=== PATIENT | female | born 2000 | race Caucasian/White ===

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

== ENCOUNTER 2019-05-27 16:27 | Emergency (ER) | payer SELFPAY ==
[2019-05-27] MEDS ORDERED: Ibuprofen 600 MG Tab PO ONE (16:52)
--- NOTE | 2019-05-27 16:54 | EDM.PDOC ---
ED HPI GENERAL MEDICAL PROBLEM - General Chief Complaint: Upper Extremity Injury/Pain Stated Complaint: FELL AT WORK/HURT RT ELBOW Time Seen by Provider: 05/27/19 16:53 Source of Information: Reports: Patient History Limitations: Reports: No Limitations - History of Present Illness INITIAL COMMENTS - FREE TEXT/NARRATIVE: pt arrived after a fall on the ice this am. She landed on her elebow and now is having alot of pain with movement of the arm. Onset: Today, Sudden Duration: Hour(s): Location: Reports: Upper Extremity, Right Associated Symptoms: Reports: No Other Symptoms Right Elbow Pain Score (Numeric/FACES): 6 - Related Data Allergies Allergy/AdvReac Type Severity Reaction Status Date / Time *sun Allergy Hives Uncoded 12/25/17 10:06 Home Meds: Home Meds Adapalene/Benzoyl Peroxide [Epiduo 0.1-2.5% Gel] 1 applic TOP DAILY PRN [History] Albuterol Sulfate [Proair Hfa] 2 inh INH ASDIRECTED PRN 11/15/13 [History] Omeprazole 20 mg PO DAILY 12/24/17 [History] Dextroamphetamine/Amphetamine [Adderall 20 mg Tablet] 20 mg PO DAILY 05/27/19 [ History] buPROPion [buPROPion XL] 150 mg PO BEDTIME 05/27/19 [History] Past Medical History - Past Health History Medical/Surgical History: Denies Medical/Surgical History HEENT History: Reports: Impaired Vision Cardiovascular History: Reports: None Respiratory History: Reports: Asthma Gastrointestinal History: Reports: None Other Gastrointestinal History: stomaches unknown origin Genitourinary History: Reports: None 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 Musculoskeletal History: Reports: None Neurological History: Reports: Concussion Psychiatric History: Reports: ADHD, Anxiety, Depression, Panic Attack Other Psychiatric History: cutting Endocrine/Metabolic History: Reports: None Hematologic History: Reports: None Immunologic History: Reports: None Oncologic (Cancer) History: Reports: None Dermatologic History: Reports: None Other Dermatologic History: acne - Past Surgical History Head Surgeries/Procedures: Reports: None Musculoskeletal Surgical History: Reports: Other (See Below) Other Musculoskeletal Surgeries/Procedures:: right foot Social & Family History - Tobacco Use Smoking Status *Q: Never Smoker - Caffeine Use Caffeine Use: Reports: Coffee, Soda, Tea - Recreational Drug Use Recreational Drug Use: No - Living Situation & Occupation Living situation: Reports: with Significant Other (lives in [place], [place]. with boyfriend) Review of Systems - Review of Systems Review Of Systems: See Below Constitutional: Reports: No Symptoms Eyes: Reports: No Symptoms Ears: Reports: No Symptoms Nose: Reports: No Symptoms Mouth/Throat: Reports: No Symptoms Respiratory: Reports: No Symptoms Cardiovascular: Reports: No Symptoms Musculoskeletal: Reports: Other (pain in rt elebow--tender to palpate. Xray of the elebow is neg for fracture. ) Skin: Reports: No Symptoms Neurological: Reports: No Symptoms ED EXAM, GENERAL - Physical Exam Exam: See Below Free Text/Narrative:: pt has a tender rt elebow. She is uncomfortable with full extension. Extremities: Other ( elebow is not swollen. She is very uncomfortable with full extension) Neurological: Alert, Oriented, Normal Cognition Course - Vital Signs Last Recorded V/S: Last Vital Signs Temp 35.5 C L 05/27/19 16:44 Pulse 100 05/27/19 16:44 Resp 16 05/27/19 16:44 BP 157/78 H 05/27/19 16:44 Pulse Ox 98 05/27/19 16:44 - Orders/Labs/Meds Meds: Medications Discontinued Medications Generic Name Dose Route Start Last Admin Trade Name Cam PRN Reason Stop Dose Admin Ibuprofen 600 mg 05/27/19 16:52 05/27/19 17:06 Motrin PO 05/27/19 16:53 600 mg ONETIME ONE Administration - Re-Assessments/Exams Free Text/Narrative Re-Assessment/Exam: 05/27/19 18:08 xray reveals no fracture. pt will be placed in a sling. 05/30/19 19:00 Departure - Departure Time of Disposition: 18:04 Disposition: Home, Self-Care 01 Condition: Fair Clinical Impression: Contusion of right elbow - Discharge Information Instructions: Elbow Contusion, [id number] Referrals: PCP,None [Primary Care Provider] - Forms: ED Department Discharge Care Plan Goals: cool pack, sling off and on, fully extend the elebow several times daily motrin 600mg q6h as needed for pain. Sepsis Event Note - Evaluation Sepsis Screening Result: No Definite Risk - Focused Exam Date Exam was Performed: 05/30/19 Time Exam was Performed: 18:59
[2019-05-27 17:10] VITALS: BP 157/78; PULSE 100
--- NOTE | 2019-05-27 17:52 | CRLCR ---
INDICATION: Fall, right elbow pain. TECHNIQUE: X-ray right elbow, 3 views. COMPARISON: None available. FINDINGS: The alignment is normal. No elbow joint effusion is seen. Negative for acute fracture or dislocation. Overlying soft tissues within normal limits. IMPRESSION: Negative for acute fracture or dislocation. Dictated by Linda Caraballo MD @ 05/27/2019 5:49:36 PM Dictated by: Linda Caraballo MD @ 05/27/2019 17:50:14 (Electronically Signed)
== END 2019-05-27 18:20 | disposition home or self-care (01) ==
LOC: JP.ED 16:27
DX: S50.01XA Contusion of right elbow, initial encounter (principal); W18.30XA Fall on same level, unspecified, initial encounter; J45.909 Unspecified asthma, uncomplicated
CPT/HCPCS: 73080; 99283; A9270; 99282

== ENCOUNTER 2019-09-17 00:18 | Emergency (ER) | payer MEDICAID, OTHER ==
[2019-09-17 00:42] VITALS: BP 145/80; PULSE 99
[2019-09-17] MEDS ORDERED: Lactated Ringers 1,000 ML IV ONE (01:00)
[2019-09-17] MEDS ORDERED: Sodium Chloride 0.9% 10 ML Syringe FLUSH PRN (01:00)
[2019-09-17] MEDS ORDERED: Ondansetron 4 MG/2 ML SDV IVPUSH ONE (01:00)
--- NOTE | 2019-09-17 01:03 | EDM.PDOC ---
ED HPI GENERAL MEDICAL PROBLEM - General Chief Complaint: Gastrointestinal Problem Stated Complaint: VOMITING BLOOD Time Seen by Provider: 09/17/19 00:56 Source of Information: Reports: Patient, Family, RN Notes Reviewed History Limitations: Reports: No Limitations - History of Present Illness INITIAL COMMENTS - FREE TEXT/NARRATIVE: 19-year-old female presents emergency department a complaint of nausea and vomiting, she is currently 11 weeks intrauterine she is 1 para 0 states to have difficulties all day has had some blood-tinged sputum in her emesis, does have a photograph which reveals blood tinged sputum in the emesis - Related Data Allergies Allergy/AdvReac Type Severity Reaction Status Date / Time *sun Allergy Hives Uncoded 09/17/19 00:36 Home Meds: Home Meds Prenat 115/Iron Fum/Folic/Dss [ 19 Tablet] 1 each PO DAILY 09/17/19 [History] Past Medical History HEENT History: Reports: Impaired Vision Respiratory History: Reports: Asthma Other Gastrointestinal History: ulcers 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: Neurological History: Reports: Concussion Psychiatric History: Reports: ADHD, Anxiety, Depression, Panic Attack Other Psychiatric History: cutting Other Dermatologic History: acne - Past Surgical History Head Surgeries/Procedures: Reports: None GI Surgical History: Reports: EGD Musculoskeletal Surgical History: Reports: Other (See Below) Other Musculoskeletal Surgeries/Procedures:: right foot-taylors bunion Social & Family History - Tobacco Use Smoking Status *Q: Never Smoker - Caffeine Use Caffeine Use: Reports: None - Recreational Drug Use Recreational Drug Use: No - Living Situation & Occupation Living situation: Reports: with Significant Other (lives in [facility] with boyfriend) ED ROS GENERAL - Review of Systems Review Of Systems: See Below Constitutional: Reports: No Symptoms HEENT: Reports: No Symptoms Respiratory: Reports: No Symptoms Cardiovascular: Reports: No Symptoms GI/Abdominal: Reports: Nausea, Vomiting. Denies: Abdominal Pain : Reports: No Symptoms ED EXAM - Physical Exam Exam: See Below Exam Limited By: No Limitations General Appearance: Alert, WD/WN, No Apparent Distress Respiratory/Chest: No Respiratory Distress, Lungs Clear, Normal Breath Sounds, No Accessory Muscle Use, Chest Non-Tender Cardiovascular: Regular Rate, Rhythm, No Murmur GI/Abdominal Exam: Soft, Non-Tender Course - Vital Signs Last Recorded V/S: Last Vital Signs Temp 98.1 F 09/17/19 00:37 Pulse 99 09/17/19 00:37 Resp 16 09/17/19 00:37 BP 145/80 H 09/17/19 00:37 Pulse Ox 100 09/17/19 00:37 - Orders/Labs/Meds Orders: Active Orders 24 hr Category Date Time Status Peripheral IV Care [RC] . DIRECTED Care 09/17/19 01:00 Active Sodium Chloride 0.9% [Saline Flush] Med 09/17/19 01:00 Active 10 ml FLUSH ASDIRECTED PRN Peripheral IV Insertion Adult [OM.PC] Urgent Oth 09/17/19 01:00 Ordered Medication Orders Sodium Chloride (Saline Flush) 10 ml FLUSH ASDIRECTED PRN PRN Reason: Keep Vein Open Last Admin: 09/17/19 01:31 Dose: 10 ml Documented by: LORENA Labs: Laboratory Tests 09/17/19 Range/Units 00:56 Urine Color Yellow (YELLOW) Urine Appearance Cloudy A (CLEAR) Urine pH 6.0 (5.0-8.0) Ur Specific [place] >= 1.030 (1.008-1.030) Urine Protein 30 H (NEGATIVE) mg/dL Urine Glucose (UA) Negative (NEGATIVE) mg/dL Urine Ketones 40 H (NEGATIVE) mg/dL Urine Occult Blood Negative (NEGATIVE) Urine Nitrite Negative (NEGATIVE) Urine Bilirubin Negative (NEGATIVE) Urine Urobilinogen 1.0 (0.2-1.0) EU/dL Ur Leukocyte Esterase Negative (NEGATIVE) Urine RBC 0-5 (0-5) Urine WBC 0-5 (0-5) Ur Epithelial Cells Many Amorphous Sediment Not seen Urine Bacteria Many Urine Mucus Many Meds: Medications Generic Name Dose Route Start Last Admin Trade Name Freq PRN Reason Stop Dose Admin Sodium Chloride 10 ml 09/17/19 01:00 09/17/19 01:31 Saline Flush FLUSH 10 ml ASDIRECTED PRN Administration Keep Vein Open Discontinued Medications Generic Name Dose Route Start Last Admin Trade Name Freq PRN Reason Stop Dose Admin Lactated Ringer's 1,000 mls @ 999 mls/hr 09/17/19 01:00 09/17/19 01:31 Ringers, Lactated IV 09/17/19 02:00 999 mls/hr BOLUS ONE Administration Ondansetron HCl 4 mg 09/17/19 01:00 09/17/19 01:31 Zofran IVPUSH 09/17/19 01:01 4 mg ONETIME ONE Administration Departure - Departure Time of Disposition: 02:14 Disposition: Home, Self-Care 01 Condition: Fair Clinical Impression: Nausea and vomiting during prior to 22 weeks gestation - Discharge Information Instructions: Nausea and Vomiting, Adult, [id number] Referrals: PCP,None [Primary Care Provider] - Forms: ED Department Discharge Additional Instructions: Continue to use the Zofran as needed for nausea and vomiting symptoms, keep your follow-up appointment with your computer assembler next week call return to the emergency department worsening of symptoms Sepsis Event Note (ED) - Evaluation Sepsis Screening Result: No Definite Risk - Focused Exam Vital Signs: Vital Signs Temp Pulse Resp BP Pulse Ox 09/17/19 00:37 98.1 F 99 16 145/80 H 100 - My Orders Last 24 Hours: My Active Orders 09/17/19 01:00 Peripheral IV Care [RC] . DIRECTED Sodium Chloride 0.9% [Saline Flush] 10 ml FLUSH ASDIRECTED PRN Peripheral IV Insertion Adult [OM.PC] Urgent - Assessment/Plan Last 24 Hours: My Active Orders 09/17/19 01:00 Peripheral IV Care [RC] . DIRECTED Sodium Chloride 0.9% [Saline Flush] 10 ml FLUSH ASDIRECTED PRN Peripheral IV Insertion Adult [OM.PC] Urgent Plan: Assessment Acuity = acute Site and laterality = nausea and vomiting first trimester Etiology = unknown Manifestations = none Location of injury = Home Lab values = urinalysis reveals specific gravity of 1.03 consistent with intravascular volume depletion Plan Good improvement 1 L fluids 4 mg Zofran symptoms now resolved discharged home with Zofran 1 mg p.o. 3 times daily PRN total #10 she has a follow-up with her COMPUTER ASSEMBLER next week This note was dictated using [employer] voice recognition software please call with any questions on syntax or grammar.
== END 2019-09-17 02:32 | disposition home or self-care (01) ==
LOC: JP.ED 00:18
DX: O21.9 Vomiting of pregnancy, unspecified (principal); Z91.048 Other nonmedicinal substance allergy status; Z3A.11 11 weeks gestation of pregnancy
CPT/HCPCS: 81001; 96361; 96374; 99284; J2405; J7120

== ENCOUNTER 2019-09-17 03:29 | Emergency (ER) | payer MEDICAID ==
[2019-09-17 03:43] VITALS: BP 147/77; PULSE 105
--- NOTE | 2019-09-17 04:16 | EDM.PDOC ---
ED HPI GENERAL MEDICAL PROBLEM - General Chief Complaint: VEST BUSHELER Problem Stated Complaint: BLEEDING 11 WKS PREG. Time Seen by Provider: 09/17/19 04:12 Source of Information: Reports: Patient, Family, RN Notes Reviewed History Limitations: Reports: No Limitations - History of Present Illness INITIAL COMMENTS - FREE TEXT/NARRATIVE: 19-year-old female 1 para 0 currently 11 weeks and negatives had evaluated earlier in the ED for nausea and vomiting, that now has resolved unfortunately she did get home this evening large gush of bright red blood, no abdominal cramping she has not had a quickening at this time denies pain Pain Score (Numeric/FACES): 0 - Related Data Allergies Allergy/AdvReac Type Severity Reaction Status Date / Time *sun Allergy Hives Uncoded 09/17/19 03:44 Home Meds: Home Meds Prenat 115/Iron Fum/Folic/Dss [ 19 Tablet] 1 each PO DAILY 09/17/19 [History] Past Medical History HEENT History: Reports: Impaired Vision Respiratory History: Reports: Asthma Other Gastrointestinal History: ulcers Genitourinary History: Reports: None 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: Musculoskeletal History: Reports: None Neurological History: Reports: Concussion Psychiatric History: Reports: ADHD, Anxiety, Depression, Panic Attack, Other (See Below) Other Psychiatric History: cutting Endocrine/Metabolic History: Reports: None Hematologic History: Reports: None Immunologic History: Reports: None Oncologic (Cancer) History: Reports: None Dermatologic History: Reports: Other (See Below) Other Dermatologic History: acne - Past Surgical History Musculoskeletal Surgical History: Reports: Other (See Below) Other Musculoskeletal Surgeries/Procedures:: right foot-taylors bunion Social & Family History - Tobacco Use Smoking Status *Q: Never Smoker - Caffeine Use Caffeine Use: Reports: Coffee, Soda - Recreational Drug Use Recreational Drug Use: No - Living Situation & Occupation Living situation: Reports: with Significant Other (lives in [place], [place]. with boyfriend) ED ROS GENERAL - Review of Systems Review Of Systems: See Below Constitutional: Reports: No Symptoms Respiratory: Reports: No Symptoms Cardiovascular: Reports: No Symptoms : Reports: Irregular Menses ED EXAM - Physical Exam Exam: See Below Exam Limited By: No Limitations General Appearance: Alert, WD/WN, No Apparent Distress GI/Abdominal Exam: Soft, Non-Tender Heart Tones: Not [place] Movement: Not Appreciated Course - Vital Signs Last Recorded V/S: Last Vital Signs Temp 98.7 F 09/17/19 03:42 Pulse 105 H 09/17/19 03:42 Resp 17 09/17/19 03:42 BP 147/77 H 09/17/19 03:42 Pulse Ox 97 09/17/19 03:42 - Orders/Labs/Meds Orders: Active Orders 24 hr Category Date Time Status OB Transvaginal [US] Stat Exams 09/17/19 03:57 Taken Departure - Departure Time of Disposition: 05:33 Disposition: Home, Self-Care 01 Condition: Fair Clinical Impression: Subchorionic hemorrhage in first trimester Qualifiers: Fetus number: single or unspecified fetus Qualified Code(s): O41.8X10 - Other specified disorders of amniotic fluid and membranes, first trimester, not applicable or unspecified; O46.8X1 - Other antepartum hemorrhage, first trimester - Discharge Information Instructions: Subchorionic Hematoma Referrals: PCP,None [Primary Care Provider] - Forms: ED Department Discharge Additional Instructions: Keep your follow-up appointment with your VEST BUSHELER call return to the emergency department with worsening of symptoms Sepsis Event Note (ED) - Evaluation Sepsis Screening Result: No Definite Risk - Focused Exam Vital Signs: Vital Signs Temp Pulse Resp BP Pulse Ox 09/17/19 03:42 98.7 F 105 H 17 147/77 H 97 09/17/19 03:41 98.7 F 105 H 17 147/77 H 97 - My Orders Last 24 Hours: My Active Orders 09/17/19 03:57 OB Transvaginal [US] Stat - Assessment/Plan Last 24 Hours: My Active Orders 09/17/19 03:57 OB Transvaginal [US] Stat Plan: Assessment Acuity = acute Site and laterality = subchorionic hemorrhage with single live intrauterine p regnancy Etiology = unknown Manifestations = none Location of injury = Home Lab values = ultrasound describes the hemorrhage above Plan Keep follow-up appointment with VEST BUSHELER on the This note was dictated using [employer] voice recognition software please call with any questions on syntax or grammar.
--- NOTE | 2019-09-19 10:37 | US ---
OB Transvaginal CLINICAL HISTORY: First trimester bleed FINDINGS: Real-time transvaginal images obtained through the pelvis show a single viable intrauterine . Uterus measures 9.8 x 8.5 x 6.9 cm. There is a gestational sac with a pole measuring 4.4 cm. This correlates to the 11 week 2 day gestation. EDC is 06/28/2020 Adjacent to the gestational sac is a subchorionic hemorrhage measuring 3.1 x 0.8 x 2.5 cm. There is no internal flow. heart rate is 165 bpm. Yolk sac measures 4 mm. IMPRESSION: Viable 11 week 2 day gestation Subchorionic bleed described above
== END 2019-09-17 05:42 | disposition home or self-care (01) ==
LOC: JP.ED 03:29
DX: O20.8 Other hemorrhage in early pregnancy (principal); Z91.048 Other nonmedicinal substance allergy status; Z3A.11 11 weeks gestation of pregnancy
CPT/HCPCS: 76817; 76817-26; 99284-25

== ENCOUNTER 2020-03-20 04:13 | Inpatient (IN) | payer MEDICAID ==
[2020-03-20] MEDS ORDERED: Sodium Chloride 0.9% 10 ML Syringe FLUSH PRN (07:20)
[2020-03-20] MEDS ORDERED: fentaNYL 100 MCG/2 ML SDV IVPUSH PRN (07:20)
[2020-03-20] MEDS ORDERED: Misoprostol 50 MCG (1/2 of 100 MCG) Tab PO ONE (07:30)
--- NOTE | 2020-03-20 07:31 | PCM.LDHP ---
L&D History of Present Illness - General Date of Service: 03/20/20 (PROM) Admit Problem/Dx: Patient Status Order with Admit Dx/Problem 03/20/20 07:20 Patient Status [ADT] Routine Admission Diagnosis/Problem Admission Diagnosis/Problem Source of Information: Patient History Limitations: Reports: No Limitations - History of Present Illness Introduction:: 03/20/20 This 20 year old who is 38 3/7 presented with SROM at home without labor. She was having mild contractions at 0130 and awoke to a pool of fluid in her bed at 0345. FMR was positive. CE /-2 at 0445 by staff. uncomplicated Labs: ABO A pos, HIV neg, GBS neg, Covid pending Timing/Duration: Reports: minutes: (3-4) Location, : Reports: Abdomen Quality: Reports: Pressure Severity: Mild Improves with: Reports: None Worsens with: Reports: None Associated Symptoms: Reports: vaginal fluid - Related Data Allergies/Adverse Reactions: Allergies Allergy/AdvReac Type Severity Reaction Status Date / Time *sun Allergy Hives Uncoded 09/17/19 03:44 Past Medical History - Past Health History Medical/Surgical History: Denies Medical/Surgical History HEENT History: Reports: Impaired Vision Cardiovascular History: Reports: None Respiratory History: Reports: Asthma Other Gastrointestinal History: ulcers Genitourinary History: Reports: None 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: : 1 Para: 0 LMP (Approximate): (RODNEY 03/31/20) Musculoskeletal History: Reports: None Neurological History: Reports: Concussion Psychiatric History: Reports: ADHD, Anxiety, Depression, Panic Attack, Other (See Below) Other Psychiatric History: cutting Endocrine/Metabolic History: Reports: None Hematologic History: Reports: None Immunologic History: Reports: None Oncologic (Cancer) History: Reports: None Dermatologic History: Reports: Other (See Below) Other Dermatologic History: acne - Infectious Disease History Infectious Disease History: Reports: None - Past Surgical History Head Surgeries/Procedures: Reports: None HEENT Surgical History: Reports: None Cardiovascular Surgical History: Reports: None Respiratory Surgical History: Reports: None GI Surgical History: Reports: EGD Female Surgical History: Reports: None Endocrine Surgical History: Reports: None Neurological Surgical History: Reports: None Musculoskeletal Surgical History: Reports: Other (See Below) Other Musculoskeletal Surgeries/Procedures:: right foot-taylors bunion Oncologic Surgical History: Reports: None Dermatological Surgical History: Reports: None Social & Family History - Tobacco Use Tobacco Use Status *Q: Never Tobacco User Second Hand Smoke Exposure: No - Caffeine Use Caffeine Use: Reports: Coffee, Soda - Recreational Drug Use Recreational Drug Use: No - Living Situation & Occupation Living situation: Reports: with Significant Other (lives in [facility] with boyfriend) H&P Review of Systems - Review of Systems: Review Of Systems: See Below General: Reports: No Symptoms HEENT: Reports: No Symptoms Pulmonary: Reports: No Symptoms Cardiovascular: Reports: No Symptoms Gastrointestinal: Reports: No Symptoms Genitourinary: Reports: No Symptoms Musculoskeletal: Reports: No Symptoms Skin: Reports: No Symptoms Psychiatric: Reports: No Symptoms Neurological: Reports: No Symptoms Hematologic/Lymphatic: Reports: No Symptoms Immunologic: Reports: No Symptoms L&D Exam - Exam Exam: See Below - Vital Signs Vital Signs: Last Vital Signs Temp 98.2 F 03/20/20 07:00 Pulse 98 03/20/20 07:00 Resp 18 03/20/20 07:00 BP 139/82 03/20/20 07:00 Pulse Ox 94 L 03/20/20 07:00 Weight: 250 lb - OB Specific Contraction Duration (sec): 50-70 Contraction Frequency (min): 3-5 Contraction Intensity: Mild Movement: Active Heart Tones: Present Heart Tones per Min: 130 Heart Rate (FHR) Variability: Moderate (6-25 bmp) Presentation: Vertex - Tran Score Tran Score Cervix Position: Midposition Tran Score Consistency: Soft Tran Score Effacement: 51-70% Tran Score Dilation: 1-2 cm Tran Score 's Station: -2 Tran Score Total: 7 - Exam General: Alert, Oriented HEENT: PERRLA, Conjunctiva Clear Neck: Trachea Midline Lungs: Normal Respiratory Effort Cardiovascular: Regular Rate, Regular Rhythm GI/Abdominal Exam: Soft Genitourinary: Cervical dilitation, Cervical fluid, Enlarged uterus Back Exam: Normal Inspection Extremities: No Pedal Edema, Normal Capillary Refill Skin: Warm Neurological: Cranial Nerves Intact Psychiatric: Alert, Normal Affect, Normal Mood - Patient Data Lab Results Last 24 hrs: Laboratory Results - last 24 hr 03/20/20 03/20/20 03/20/20 Range/Units 04:15 04:37 05:44 WBC (4.5-11.0) K/uL RBC (3.30-5.50) M/uL Hgb (12.0-15.0) g/dL Hct (36.0-48.0) % MCV (80-98) fL MCH (27-31) pg MCHC (32-36) % Plt Count (150-400) K/uL Neut % (Auto) (36-66) % Lymph % (Auto) (24-44) % [facility] % (Auto) (2-6) % Eos % (Auto) (2-4) % Baso % (Auto) (0-1) % Urine Color Yellow (YELLOW) Urine Appearance Slightly cloudy A (CLEAR) Urine pH 7.0 (5.0-8.0) Ur Specific [place] 1.025 (1.008-1.030) Urine Protein Trace H (NEGATIVE) mg/dL Urine Glucose (UA) 100 H (NEGATIVE) mg/dL Urine Ketones Negative (NEGATIVE) mg/dL Urine Occult Blood Moderate H (NEGATIVE) Urine Nitrite Negative (NEGATIVE) Urine Bilirubin Negative (NEGATIVE) Urine Urobilinogen 0.2 (0.2-1.0) EU/dL Ur Leukocyte Esterase Negative (NEGATIVE) Urine RBC 30-40 H (0-5) Urine WBC 0-5 (0-5) Ur Epithelial Cells Few Amorphous Sediment Not seen Urine Bacteria Moderate Urine Mucus Not seen Membrane Rupture Positive H (NEGATIVE) Urine Opiates Screen Negative (NEGATIVE) Ur Oxycodone Screen Negative (NEGATIVE) Urine Methadone Screen Negative (NEGATIVE) Ur Propoxyphene Screen Negative (NEGATIVE) Ur Barbiturates Screen Negative (NEGATIVE) Ur Tricyclics Screen Negative (NEGATIVE) Ur Phencyclidine Scrn Negative (NEGATIVE) Ur Amphetamine Screen Negative (NEGATIVE) U Methamphetamines Scrn Negative (NEGATIVE) Urine MDMA Screen Negative (NEGATIVE) U Benzodiazepines Scrn Negative (NEGATIVE) U Cocaine Metab Screen Negative (NEGATIVE) U Marijuana (THC) Screen Negative (NEGATIVE) 03/20/20 Range/Units 06:03 WBC 13.6 H (4.5-11.0) K/uL RBC 4.52 (3.30-5.50) M/uL Hgb 10.7 L D (12.0-15.0) g/dL Hct 34.5 L (36.0-48.0) % MCV 76 L (80-98) fL MCH 24 L (27-31) pg MCHC 31 L (32-36) % Plt Count 307 (150-400) K/uL Neut % (Auto) 71 H (36-66) % Lymph % (Auto) 17 L (24-44) % [facility] % (Auto) 12 H (2-6) % Eos % (Auto) 0 L (2-4) % Baso % (Auto) 0 (0-1) % Urine Color (YELLOW) Urine Appearance (CLEAR) Urine pH (5.0-8.0) Ur Specific [place] (1.008-1.030) Urine Protein (NEGATIVE) mg/dL Urine Glucose (UA) (NEGATIVE) mg/dL Urine Ketones (NEGATIVE) mg/dL Urine Occult Blood (NEGATIVE) Urine Nitrite (NEGATIVE) Urine Bilirubin (NEGATIVE) Urine Urobilinogen (0.2-1.0) EU/dL Ur Leukocyte Esterase (NEGATIVE) Urine RBC (0-5) Urine WBC (0-5) Ur Epithelial Cells Amorphous Sediment Urine Bacteria Urine Mucus Membrane Rupture (NEGATIVE) Urine Opiates Screen (NEGATIVE) Ur Oxycodone Screen (NEGATIVE) Urine Methadone Screen (NEGATIVE) Ur Propoxyphene Screen (NEGATIVE) Ur Barbiturates Screen (NEGATIVE) Ur Tricyclics Screen (NEGATIVE) Ur Phencyclidine Scrn (NEGATIVE) Ur Amphetamine Screen (NEGATIVE) U Methamphetamines Scrn (NEGATIVE) Urine MDMA Screen (NEGATIVE) U Benzodiazepines Scrn (NEGATIVE) U Cocaine Metab Screen (NEGATIVE) U Marijuana (THC) Screen (NEGATIVE) Result Diagrams: 03/20/20 06:03 - Problem List (1) Intrauterine SNOMED Code(s): 99833106 ICD Code: Z34.90 - ENCNTR FOR SUPRVSN OF NORMAL , UNSP, UNSP TRIMESTER Status: Acute Current Visit: Yes (2) PROM (premature rupture of membranes) SNOMED Code(s): 37643210 ICD Code: O42.90 - NAKUL ROM, 7TH0 BETW RUPT & ONST LABR, UNSP WEEKS OF GEST Status: Acute Current Visit: Yes Qualifiers: PROM onset of labor timing: unspecified duration between rupture of membranes and onset of labor PROM gestational age: full term Qualified Code(s): O42.9 2 - Full-term premature rupture of membranes, unspecified as to length of time between rupture and onset of labor Problem List Initiated/Reviewed/Updated: Yes Orders Last 24hrs: Active Orders 24 hr Category Date Time Status Patient Status [ADT] Routine ADT 03/20/20 07:20 Ordered Antiembolic Devices [RC] .Routine Care 03/20/20 07:23 Ordered Communication Order [RC] ASDIRECTED Care 03/20/20 07:20 Ordered Heart Tones [RC] PER UNIT ROUTINE Care 03/20/20 07:20 Ordered Non Stress Test [RC] Click to Edit Care 03/20/20 07:20 Ordered May Shower [RC] ASDIRECTED Care 03/20/20 07:20 Ordered Notify Provider Vital Signs [RC] PRN Care 03/20/20 07:20 Ordered Notify Provider [RC] PRN Care 03/20/20 07:20 Ordered OB Check [OM.PC] Click to Edit Care 03/20/20 04:14 Ordered Up ad Martha [RC] ASDIRECTED Care 03/20/20 07:20 Ordered VTE/DVT Education [RC] Click to Edit Care 03/20/20 07:23 Ordered Vital Signs [RC] PER UNIT ROUTINE Care 03/20/20 07:20 Ordered Regular Diet [DIET] Diet 03/20/20 Dinner Ordered CORONAVIRUS COVID-19 RAPID [MOLEC] Routine Lab 03/20/20 06:04 Received Sodium Chloride 0.9% [Saline Flush] Med 03/20/20 07:20 Ordered 10 ml FLUSH ASDIRECTED PRN fentaNYL [Sublimaze] Med 03/20/20 07:20 Ordered 100 mcg IVPUSH Q1H PRN miSOPROStoL [Cytotec] Med 03/20/20 07:14 Once 100 mcg PO ONETIME ONE DVT/VTE Prophylaxis Reflex [OM.PC] Routine Oth 03/20/20 07:20 Ordered Saline Lock Insert [OM.PC] Routine Oth 03/20/20 07:20 Ordered Resuscitation Status Routine Resus Stat 03/20/20 07:20 Ordered Medication Orders Fentanyl (Sublimaze) 100 mcg IVPUSH Q1H PRN PRN Reason: Pain (moderate 4-6) Misoprostol (Cytotec) 100 mcg PO ONETIME ONE Stop: 03/20/20 07:31 Sodium Chloride (Saline Flush) 10 ml FLUSH ASDIRECTED PRN PRN Reason: Keep Vein Open Assessment/Plan Comment:: 03/20/20 PROM at 38 3/7 weeks, mild contractions, clear fluid Plan: Oral Misoprostol this morning and pitocin at noon if no strong labor plan for vaginal delivery maybe up and about
[2020-03-20] MEDS ORDERED: Lactated Ringers 1,000 ML IV ONE (11:47)
[2020-03-20] MEDS ORDERED: ePHEDrine 50 MG/ML SDV IVPUSH PRN (11:47)
--- NOTE | 2020-03-20 11:51 | PCM.PNLD ---
Labor Progress Note - VS & Meds Vital Signs: Last Vital Signs Temp 98.2 F 03/20/20 07:00 Pulse 102 H 03/20/20 08:55 Resp 18 03/20/20 08:55 BP 137/84 03/20/20 08:55 Pulse Ox 98 03/20/20 08:55 Active Medications: Current Medications Fentanyl (Sublimaze) 100 mcg IVPUSH Q1H PRN PRN Reason: Pain (moderate 4-6) Sodium Chloride (Saline Flush) 10 ml FLUSH ASDIRECTED PRN PRN Reason: Keep Vein Open Discontinued Medications Oxytocin/Sodium Chloride (Pitocin In Ns 20 Units/1,000 Ml) Confirm Administered Dose 20 unit in 1,000 mls @ as directed .ROUTE .STK-MED ONE Stop: 03/20/20 11:05 Misoprostol (Cytotec) 100 mcg PO ONETIME ONE Stop: 03/20/20 07:31 Last Admin: 03/20/20 07:50 Dose: 100 mcg Documented by: - Uterine Contractions Uterine Monitoring Mode: External [place] Contraction Frequency (min): 1.5-3 Contraction Duration (sec): 30-60 Contraction Intensity: Moderate Uterine Resting Tone: Soft - Monitoring Monitor Mode: Doppler/Auscultation Heart Rate (FHR) Baseline: 135 Heart Rate (FHR) Variability: Moderate (6-25 bmp) Accelerations: Present, 15x15 Decelerations: None Strip Review: Category I - Vaginal Exam Dilation (cm): 3 Effacement (Percent): 90 Station: 0 Cervical Position: Midposition Sterile Vaginal Exam Performed By: Hilaria Puentes Vaginal Exam Comment: has had effacement since this morning - Labor Progress (Free Text) Labor Progress: Lots of back pain cervical change /0 currently using nitrous with some relief. Plan Epidural Labor down and peanut ball. Plan for vaginal delivery
[2020-03-20] MEDS: Lactated Ringers 1,000 ML IV SCH ×2 (12:50→16:50)
[2020-03-20] MEDS ORDERED: Ropivacaine 100 ML ONE (13:41)
[2020-03-20] MEDS ORDERED: Ketorolac 60 MG/2 ML SDV ONE (13:55)
--- NOTE | 2020-03-20 14:47 | ANES ---
DATE OF SERVICE: 03/20/2020 INDICATION: I was called this early afternoon for a young lady up in the OB Department requesting a labor epidural. I was at the bedside at approximately 12:30. Brief history and physical was done with the patient. The patient has had a normal , is a healthy patient, is not currently on any blood thinners. Platelet count was noted to be 307. Bolus was just finishing up when I was in the room. Risks and benefits including spinal headache and risk for infection were reviewed with the patient. The patient verbalizes her understanding and wishes to proceed with the labor epidural at this time. DESCRIPTION OF PROCEDURE: The patient was sat at the edge of the bed. Betadine prep x3 to the lumbar region was done. Sterile drape was placed. 1% lidocaine skin wheal and deep was done. A 17-gauge Tuohy needle was inserted at approximately the L3-4 position. Very poor feel throughout, very difficult to get a good flavum feel. I did get some loss of resistance or what feel to be loss of resistance. I tried to pass a catheter and I was able to get the catheter in to 15 cm. Pulled the Touhy out. Did give the test dose bolus but was unable to do that, so catheter was then pulled and a second kit was then retrieved. The patient continued to sat at the edge of the bed. I did re-prep the Betadine x3 again. Sterile drape was placed on. 1% lidocaine skin wheal and deep was done at the L4-5 level this time. The Tuohy needle was inserted at that level. Did have better feel overall this time once again to flavum, I had a real nice feel at that time and a very nice loss of resistance was noted at approximately 8 cm, Touhy was all the way to the hub. Catheter was easily placed through the Touhy needle at this time. The Tuohy needle was then withdrawn. Catheter was pulled back and secured at approximately 17 cm. A 5 mL test dose was then done. Catheter was then fully secured. The patient was laid in supine position with head of bed slightly elevated and left uterine displacement. The patient was showing no signs of intravascular injection of local or subarachnoid block. I then proceeded to give the patient 12 mL of 0.2% ropivacaine bolus via the epidural and started her on a 0.2% ropivacaine drip at 12 mL an hour via the epidural. The patient tolerated everything overall quite well, was starting to have some numbness and tingling noted in her feet and legs prior to leaving. Blood pressure was stable after the bolus. Please refer to the nurse's notes for those. I will be available as needed for the patient. Ruiz Thorpe CRNA /[id number]
--- NOTE | 2020-03-20 17:20 | PCM.PNLD ---
Labor Progress Note - VS & Meds Vital Signs: Last Vital Signs Temp 98.2 F 03/20/20 10:40 Pulse 117 H 03/20/20 15:30 Resp 16 03/20/20 15:30 BP 125/64 03/20/20 15:30 Pulse Ox 97 03/20/20 15:30 Active Medications: Current Medications Ephedrine Sulfate (Ephedrine Sulfate) 10 mg IVPUSH ASDIRECTED PRN PRN Reason: Hypotension Last Admin: 03/20/20 14:20 Dose: 10 mg Documented by: Fentanyl (Sublimaze) 100 mcg IVPUSH Q1H PRN PRN Reason: Pain (moderate 4-6) Lactated Ringer's (Ringers, Lactated) 1,000 mls @ 125 mls/hr IV ASDIRECTED TAMARA Last Admin: 03/20/20 16:50 Dose: 125 mls/hr Documented by: Oxytocin/Sodium Chloride (Pitocin In Ns 20 Units/1,000 Ml) 20 unit in 1,000 mls @ 3 mls/hr IV TITRATE TAMARA; Protocol Last Titration: 03/20/20 16:10 Dose: 2 munits/min, 6 mls/hr Documented by: Sodium Chloride (Saline Flush) 10 ml FLUSH ASDIRECTED PRN PRN Reason: Keep Vein Open Discontinued Medications Oxytocin/Sodium Chloride (Pitocin In Ns 20 Units/1,000 Ml) Confirm Administered Dose 20 unit in 1,000 mls @ as directed .ROUTE .STK-MED ONE Stop: 03/20/20 11:05 Last Admin: 03/20/20 12:03 Dose: Not Given Documented by: Lactated Ringer's (Ringers, Lactated) 1,000 mls @ 999 mls/hr IV .BOLUS ONE Stop: 03/20/20 12:47 Last Admin: 03/20/20 11:45 Dose: 999 mls/hr Documented by: Ropivacaine (Naropin 0.2%) Confirm Administered Dose 100 mls @ as directed .ROUTE .STK-MED ONE Stop: 03/20/20 13:42 Ketorolac Tromethamine (Toradol) Confirm Administered Dose 60 mg .ROUTE .STK-MED ONE Stop: 03/20/20 13:56 Misoprostol (Cytotec) 100 mcg PO ONETIME ONE Stop: 03/20/20 07:31 Last Admin: 03/20/20 07:50 Dose: 100 mcg Documented by: - Uterine Contractions Uterine Monitoring Mode: External [place] Contraction Frequency (min): 1.5-4.5 Contraction Duration (sec): 30-60 Contraction Intensity: Moderate Uterine Resting Tone: Soft - Monitoring Monitor Mode: Doppler/Auscultation Heart Rate (FHR) Baseline: 135 Heart Rate (FHR) Variability: Moderate (6-25 bmp) Accelerations: Present, 15x15 Decelerations: None Strip Review: Category I - Vaginal Exam Dilation (cm): 5-6 Effacement (Percent): 90 Station: 1 Cervical Position: Anterior Sterile Vaginal Exam Performed By: Hilaria Puentes Vaginal Exam Comment: bloody show - Labor Progress (Free Text) Labor Progress: Epidural placed at 1315. Slow progress but now active labor. Baby has a cat 2 strip with early decels. Now 5-6/90/+1 with bloody show Plan: planning for vaginal delivery Will need to labor down after getting to 10 cm and decrease the epidural rate as she is so dense.
[2020-03-20] MEDS ORDERED: Acetaminophen 500 MG Tab PO PRN (19:35)
[2020-03-20] MEDS ORDERED: Carboprost Tromethamine 250 MCG/1 ML Amp ONE (23:07)
[2020-03-20] MEDS ORDERED: Methylergonovine 0.2 MG/1 ML Amp ONE (23:07)
[2020-03-20] MEDS ORDERED: Misoprostol 200 MCG Tab ONE (23:07)
[2020-03-20] MEDS ORDERED: Misoprostol 200 MCG Tab RECTAL ONE (23:10)
[2020-03-20] MEDS ORDERED: Methylergonovine 0.2 MG/1 ML Amp IM ONE ×2 (23:10)
[2020-03-20] MEDS ORDERED: Hydrocortisone 2.5% Crm 30 GM Tube TOP PRN (23:45)
[2020-03-20] MEDS ORDERED: Benzocaine 20% Top Spray 56 GM Bottle TOP ONE (23:45)
[2020-03-20] MEDS ORDERED: Lanolin 100% Cream 40 GM Tube TOP ONE (23:45)
[2020-03-20] MEDS ORDERED: Ibuprofen 200 MG Tab, 24 Tab Bulk Bottle PO PRN (23:45)
[2020-03-20] MEDS ORDERED: Witch Hazel Medicated Pads 100/Jar TOP ONE (23:45)
[2020-03-20] MEDS ORDERED: Acetaminophen 325 MG Tab, 50 Tab Bulk Bottle PO PRN (23:45)
--- NOTE | 2020-03-21 00:07 | PCM.DEL ---
L & D Note - General Info Date of Service: 03/20/20 () Mother's Due Date: 03/31/20 - Delivery Note Labor: Spontaneous Cervical Ripening Method: Misoprostil Delivery Outcome: Livebirth Infant Delivery Method: Spontaneous Vaginal Delivery-Single Delivery Mode: Spontaneous Presentation: Right Occiput Transverse (ROT) Nuchal Cord: Present, Reduced Anesthesia Type: Epidural, Nitrous Oxide Episiotomy Type: None Laceration: 1st Degree, Perineal Suture type: Vicryl Suture size: 3-0 Placenta: Intact, Spontaneous Cord: 3 Vessels Estimated Blood Loss: 500 Resuscitation Needed: Yes Wilson: Bulb Syringe, Stimulated, Warmed, [place] Used, Warmer Used Provider: Hilaria Puentes Score 1 min: 8 (color, tone) Score 5 min: 9 (color) Post Delivery Events: Hemorrhage, Shoulder Dystocia Second Stage Interventions: Reports: Second Nurse Reviewed Heart Tones, Encouragement Given, Laboring Down, Pushing Effectively, Pushing, Knee Chest Position, Pushing, Left Side, Pushing, McRobert's Position, Pushing, Right Side, Pushing, Squat Bar Pulling on Sheet Delivery Comments (Free Text/Narrative):: This 20 year G1 now P1 who is 38 3/7 weeks gestation delivered via at 2256 a viable female infant in ROT position. with a shoulder dystocia and nuchal cord which was reduced after delivery, The newborns head was slow to deliver and due to mother's body habitus I had to reach inside rotate the baby and apply downward pressure as the RN provided suprapubic pressure to release the anterior shoulder. Wilson was stunned on arrival. The cord was double clamped and cut and she was taken to the warmer for resuscitation. She cried spontaneously with being dried and stimulated. First 8, color, tone second 9, color. The placenta was expressed spontaneously intact. She had significant bleeding with the placenta, actually there was an explosion of blood behind the placenta. He also had brisk bleeding that required Methergine and Cytotec as well as vaginal packing to stop. she lost at least 500cc. Due to body habitus it was difficult for staff to do super good uterine massage without the step stool. I repaired a small right sided perineal tear with 4, 3-0 Vicryl sutures. Inspection of vaginal wall, cervix, rectum, no other lacerations were found. EBL 500cc Mother and baby to post in stable condition weight 7-9 First stage 9662-5119 second stage 9808-0620 Third stage 8466-6683 Induction Criteria - Tran Score Tran Score Dilation: 1-2 cm Tran Score Effacement: 60-70% Tran Score 's Station: -2 Tran Score Consistency: Soft Tran Score Cervix Position: Midposition Tran Score Total: 7 Tran Score Presenting Part: Reports: Cephalic - Augmentation Estimated Pelvis: Reports: Adequate Weight Estimated:: Reports: AGA Reassuring Monitoring Strip: Yes Absence of Tachy Systole: Yes - General Info Date of Service: 03/20/20 Functional Status: Reports: Pain Controlled - Review of Systems General: Reports: No Symptoms HEENT: Reports: No Symptoms Pulmonary: Reports: No Symptoms Cardiovascular: Reports: No Symptoms Gastrointestinal: Reports: No Symptoms Genitourinary: Reports: No Symptoms Musculoskeletal: Reports: No Symptoms Skin: Reports: No Symptoms Neurological: Reports: No Symptoms Psychiatric: Reports: No Symptoms - Patient Data Vitals - Most Recent: Last Vital Signs Temp 101 F H 03/20/20 19:30 Pulse 113 H 03/20/20 17:08 Resp 16 03/20/20 17:08 BP 109/71 03/20/20 17:08 Pulse Ox 98 03/20/20 17:08 Weight - Most Recent: 250 lb I&O - Last 24 Hours: Intake & Output 03/20/20 03/20/20 03/21/20 14:59 22:59 06:59 Intake Total 2058 Output Total 1000 Balance 1058 Lab Results Last 24 Hours: Laboratory Results - last 24 hr 03/20/20 03/20/20 03/20/20 Range/Units 04:15 04:37 05:44 WBC (4.5-11.0) K/uL RBC (3.30-5.50) M/uL Hgb (12.0-15.0) g/dL Hct (36.0-48.0) % MCV (80-98) fL MCH (27-31) pg MCHC (32-36) % Plt Count (150-400) K/uL Neut % (Auto) (36-66) % Lymph % (Auto) (24-44) % [place] % (Auto) (2-6) % Eos % (Auto) (2-4) % Baso % (Auto) (0-1) % Urine Color Yellow (YELLOW) Urine Appearance Slightly cloudy A (CLEAR) Urine pH 7.0 (5.0-8.0) Ur Specific [place] 1.025 (1.008-1.030) Urine Protein Trace H (NEGATIVE) mg/dL Urine Glucose (UA) 100 H (NEGATIVE) mg/dL Urine Ketones Negative (NEGATIVE) mg/dL Urine Occult Blood Moderate H (NEGATIVE) Urine Nitrite Negative (NEGATIVE) Urine Bilirubin Negative (NEGATIVE) Urine Urobilinogen 0.2 (0.2-1.0) EU/dL Ur Leukocyte Esterase Negative (NEGATIVE) Urine RBC 30-40 H (0-5) Urine WBC 0-5 (0-5) Ur Epithelial Cells Few Amorphous Sediment Not seen Urine Bacteria Moderate Urine Mucus Not seen Membrane Rupture Positive H (NEGATIVE) Urine Opiates Screen Negative (NEGATIVE) Ur Oxycodone Screen Negative (NEGATIVE) Urine Methadone Screen Negative (NEGATIVE) Ur Propoxyphene Screen Negative (NEGATIVE) Ur Barbiturates Screen Negative (NEGATIVE) Ur Tricyclics Screen Negative (NEGATIVE) Ur Phencyclidine Scrn Negative (NEGATIVE) Ur Amphetamine Screen Negative (NEGATIVE) U Methamphetamines Scrn Negative (NEGATIVE) Urine MDMA Screen Negative (NEGATIVE) U Benzodiazepines Scrn Negative (NEGATIVE) U Cocaine Metab Screen Negative (NEGATIVE) U Marijuana (THC) Screen Negative (NEGATIVE) SARS CoV-2 RNA Rapid VERONICA 03/20/20 03/20/20 Range/Units 06:03 06:04 WBC 13.6 H (4.5-11.0) K/uL RBC 4.52 (3.30-5.50) M/uL Hgb 10.7 L D (12.0-15.0) g/dL Hct 34.5 L (36.0-48.0) % MCV 76 L (80-98) fL MCH 24 L (27-31) pg MCHC 31 L (32-36) % Plt Count 307 (150-400) K/uL Neut % (Auto) 71 H (36-66) % Lymph % (Auto) 17 L (24-44) % [place] % (Auto) 12 H (2-6) % Eos % (Auto) 0 L (2-4) % Baso % (Auto) 0 (0-1) % Urine Color (YELLOW) Urine Appearance (CLEAR) Urine pH (5.0-8.0) Ur Specific [place] (1.008-1.030) Urine Protein (NEGATIVE) mg/dL Urine Glucose (UA) (NEGATIVE) mg/dL Urine Ketones (NEGATIVE) mg/dL Urine Occult Blood (NEGATIVE) Urine Nitrite (NEGATIVE) Urine Bilirubin (NEGATIVE) Urine Urobilinogen (0.2-1.0) EU/dL Ur Leukocyte Esterase (NEGATIVE) Urine RBC (0-5) Urine WBC (0-5) Ur Epithelial Cells Amorphous Sediment Urine Bacteria Urine Mucus Membrane Rupture (NEGATIVE) Urine Opiates Screen (NEGATIVE) Ur Oxycodone Screen (NEGATIVE) Urine Methadone Screen (NEGATIVE) Ur Propoxyphene Screen (NEGATIVE) Ur Barbiturates Screen (NEGATIVE) Ur Tricyclics Screen (NEGATIVE) Ur Phencyclidine Scrn (NEGATIVE) Ur Amphetamine Screen (NEGATIVE) U Methamphetamines Scrn (NEGATIVE) Urine MDMA Screen (NEGATIVE) U Benzodiazepines Scrn (NEGATIVE) U Cocaine Metab Screen (NEGATIVE) U Marijuana (THC) Screen (NEGATIVE) SARS CoV-2 RNA Rapid VERONICA Negative Med Orders - Current: Current Medications Acetaminophen (Tylenol Extra Strength) 1,000 mg PO Q6H PRN PRN Reason: fever/pain Last Admin: 03/20/20 19:56 Dose: 1,000 mg Documented by: Ephedrine Sulfate (Ephedrine Sulfate) 10 mg IVPUSH ASDIRECTED PRN PRN Reason: Hypotension Last Admin: 03/20/20 14:20 Dose: 10 mg Documented by: Fentanyl (Sublimaze) 100 mcg IVPUSH Q1H PRN PRN Reason: Pain (moderate 4-6) Lactated Ringer's (Ringers, Lactated) 1,000 mls @ 125 mls/hr IV ASDIRECTED TAMARA Last Admin: 03/20/20 16:50 Dose: 125 mls/hr Documented by: Oxytocin/Sodium Chloride (Pitocin In Ns 20 Units/1,000 Ml) 20 unit in 1,000 mls @ 3 mls/hr IV TITRATE TAMARA; Protocol Last Titration: 03/20/20 20:36 Dose: 4 munits/min, 12 mls/hr Documented by: Sodium Chloride (Saline Flush) 10 ml FLUSH ASDIRECTED PRN PRN Reason: Keep Vein Open Discontinued Medications Carboprost Tromethamine (Hemabate Ds) Confirm Administered Dose 250 mcg .ROUTE .STK-MED ONE Stop: 03/20/20 23:08 Oxytocin/Sodium Chloride (Pitocin In Ns 20 Units/1,000 Ml) Confirm Administered Dose 20 unit in 1,000 mls @ as directed .ROUTE .STK-MED ONE Stop: 03/20/20 11:05 Last Admin: 03/20/20 12:03 Dose: Not Given Documented by: Lactated Ringer's (Ringers, Lactated) 1,000 mls @ 999 mls/hr IV .BOLUS ONE Stop: 03/20/20 12:47 Last Admin: 03/20/20 11:45 Dose: 999 mls/hr Documented by: Ropivacaine (Naropin 0.2%) Confirm Administered Dose 100 mls @ as directed .ROUTE .STK-MED ONE Stop: 03/20/20 13:42 Ketorolac Tromethamine (Toradol) Confirm Administered Dose 60 mg .ROUTE .STK-MED ONE Stop: 03/20/20 13:56 Methylergonovine Maleate (Methergine) Confirm Administered Dose 0.2 mg .ROUTE .STK-MED ONE Stop: 03/20/20 23:08 Misoprostol (Cytotec) 100 mcg PO ONETIME ONE Stop: 03/20/20 07:31 Last Admin: 03/20/20 07:50 Dose: 100 mcg Documented by: Misoprostol (Cytotec) Confirm Administered Dose 800 mcg .ROUTE .STK-MED ONE Stop: 03/20/20 23:08 - Exam General: Alert, Oriented HEENT: Pupils Equal, Pupils Reactive, EOMI, Mucous Membr. Moist/[place] Neck: Supple Lungs: Clear to Auscultation, Normal Respiratory Effort Cardiovascular: Regular Rate, Regular Rhythm GI/Abdominal Exam: Normal Bowel Sounds, Soft, Non-Tender (Female) Exam: Cervical Dilatation, Enlarged Uterus, Vaginal Bleeding Back Exam: Normal Inspection, Full Range of Motion Extremities: No Pedal Edema, Normal Capillary Refill Skin: Warm, Dry, Intact Wound/Incisions: Healing Well Neurological: No New Focal Deficit Psy/Mental Status: Alert, Normal Affect, Normal Mood - Problem List & Annotations (1) Intrauterine SNOMED Code(s): 50165360 Code(s): Z34.90 - ENCNTR FOR SUPRVSN OF NORMAL , UNSP, UNSP TRIMESTER Status: Acute Current Visit: Yes (2) PROM (premature rupture of membranes) SNOMED Code(s): 49025655 Code(s): O42.90 - NAKUL ROM, 7TH0 BETW RUPT & ONST LABR, UNSP WEEKS OF GEST Status: Acute Current Visit: Yes Qualifiers: PROM onset of labor timing: onset of labor within 24 hours of rupture PROM gestational age: full term Qualified Code(s): O42.02 - Full-term premature rupture of membranes, onset of labor within 24 hours of rupture (3) (infant) SNOMED Code(s): 040287445 Code(s): Z78.9 - OTHER SPECIFIED HEALTH STATUS Status: Acute Current Visit: Yes (4) hemorrhage SNOMED Code(s): 06323182 Code(s): O72.1 - OTHER IMMEDIATE HEMORRHAGE Status: Acute Current Visit: Yes Qualifiers: hemorrhage type: other immediate Qualified Code(s): O72.1 - Other immediate hemorrhage (5) Vaginal delivery SNOMED Code(s): 816833109 Code(s): O80 - ENCOUNTER FOR FULL-TERM UNCOMPLICATED DELIVERY Status: Acute Current Visit: Yes - Problem List Review Problem List Initiated/Reviewed/Updated: Yes - My Orders Last 24 Hours: My Active Orders 03/20/20 04:14 OB Check [OM.PC] Click to Edit 03/20/20 07:20 Communication Order [RC] ASDIRECTED Heart Tones [RC] PER UNIT ROUTINE May Shower [RC] ASDIRECTED Notify Provider Vital Signs [RC] PRN Notify Provider [RC] PRN Up ad [place] [RC] ASDIRECTED Vital Signs [RC] PER UNIT ROUTINE Sodium Chloride 0.9% [Saline Flush] 10 ml FLUSH ASDIRECTED PRN fentaNYL [Sublimaze] 100 mcg IVPUSH Q1H PRN DVT/VTE Prophylaxis Reflex [OM.PC] Routine Saline Lock Insert [OM.PC] Routine Resuscitation Status Routine 03/20/20 07:23 Antiembolic Devices [RC] .Routine VTE/DVT Education [RC] Click to Edit 03/20/20 09:44 Communication Order [RC] Per Unit Routine Communication Order [RC] Per Unit Routine Communication Order [RC] Per Unit Routine Nitrous Oxide Delivery [RC] ASDIRECTED Oxygen Therapy [RC] ASDIRECTED Pulse Oximetry [RC] ASDIRECTED Verify Patient Consent Obtain [RC] ASDIRECTED Vital Signs [RC] PER UNIT ROUTINE 03/20/20 11:47 ePHEDrine [ePHEDrine sulfate] 10 mg IVPUSH ASDIRECTED PRN 03/20/20 11:48 Communication Order [RC] ASDIRECTED Local Anesthetic Infusion Pump [RC] ASDIRECTED PCEA Epidural [RC] ASDIRECTED PCEA Epidural [RC] ASDIRECTED Urinary Catheter Assessment [RC] ASDIRECTED Epidural Catheter Management [OM.PC] Urgent 03/20/20 12:00 Insert Urinary Catheter [OM.PC] ASDIRECTED 03/20/20 12:45 Lactated Ringers [Ringers, Lactated] 1,000 ml IV ASDIRECTED 03/20/20 14:05 Notify Provider [RC] PRN 03/20/20 14:15 Oxytocin/Normal Saline [Pitocin in NS 20 Units/1,000 ML] 20 unit in 1,000 ml IV TITRATE 03/20/20 Dinner Regular Diet [DIET] 03/20/20 19:35 Acetaminophen [Tylenol Extra Strength] 1,000 mg PO Q6H PRN 03/20/20 23:45 Acetaminophen [Tylenol Bulk Bottle] See Dose Instructions PO Q4H PRN Benzocaine [Ncco-E-Qqoacvu 20% [place]] See Dose Instructions TOP Q4H ONE Hydrocortisone [Proctozone-HC 2.5% Crm] 1 gm TOP ASDIRECTED PRN Ibuprofen [Motrin Bulk Bottle] 600 mg PO Q6H PRN Lanolin [Lansinoh HPA] 1 gm TOP ASDIRECTED ONE witch Eunice [Tucks] 1 pad TOP ASDIRECTED ONE 03/20/20 23:46 Patient Status [ADT] Routine Vital Signs [RC] PFP Ice Therapy [OM.PC] Per Unit Routine Perineal Care [OM.PC] Per Unit Routine Sitz Bath [OM.PC] Per Unit Routine 03/20/20 23:47 Peripheral IV Discontinue [OM.PC] Routine 03/21/20 05:11 CBC WITH AUTO DIFF [HEME] AM - Assessment Assessment:: 03/20/20 20 year old with complication: shoulder dystocia dn post hemorrhage Shoulder dystocia reduced with supra pubic pressure and rotation of body Hemorrhage resolved with Pitocin, Methergine and Cytotec. Female , - Plan Plan:: 03/20/20 PROM at 38 3/7 weeks, mild contractions, clear fluid Plan: Oral Misoprostol this morning and pitocin at noon if no strong labor plan for vaginal delivery maybe up and about 03/20/20 routine cares CBC in am support and mother will need a lot of teaching and help 48 hour stay
[2020-03-21] MEDS ORDERED: Benzocaine 20% Top Spray 56 GM Bottle TOP PRN (07:29)
[2020-03-21] MEDS ORDERED: Lanolin 100% Cream 40 GM Tube TOP PRN (07:30)
[2020-03-21] MEDS ORDERED: Witch Hazel Medicated Pads 100/Jar TOP PRN (07:32)
[2020-03-21] MEDS: cefTRIAXone 2 GM in Sodium Chloride 0.9% 50 ML IV SCH (08:57)
--- NOTE | 2020-03-21 12:32 | PCM.PNPP ---
- General Info Date of Service: 03/21/20 (PPD 1) Admission Dx/Problem (Free Text): Patient Status Order with Admit Dx/Problem 03/20/20 07:20 Patient Status [ADT] Routine Admission Diagnosis/Problem Admission Diagnosis/Problem Functional Status: Reports: Pain Controlled, Tolerating Diet, Ambulating, Urinating - Review of Systems General: Reports: No Symptoms HEENT: Reports: No Symptoms Pulmonary: Reports: No Symptoms Cardiovascular: Reports: No Symptoms Gastrointestinal: Reports: No Symptoms Genitourinary: Reports: No Symptoms Musculoskeletal: Reports: Back Pain (her back hurts where she had the epidural) Skin: Reports: No Symptoms Neurological: Reports: No Symptoms Psychiatric: Reports: No Symptoms - General Info Date of Service: 03/21/20 - Patient Data Vital Signs - Most Recent: Last Vital Signs Temp 97.3 F 03/21/20 11:00 Pulse 112 H 03/21/20 11:00 Resp 16 03/21/20 11:00 BP 114/52 L 03/21/20 11:00 Pulse Ox 97 03/21/20 11:00 Weight - Most Recent: 250 lb I&O - Last 24 Hours: Intake & Output 03/20/20 03/21/20 03/21/20 22:59 06:59 14:59 Intake Total 2058 3000 530 Output Total 1000 600 Balance 1058 2400 530 Lab Results - Last 24 Hours: Laboratory Results - last 24 hr 03/21/20 Range/Units 04:40 WBC 22.0 H (4.5-11.0) K/uL RBC 3.53 (3.30-5.50) M/uL Hgb 8.2 L D (12.0-15.0) g/dL Hct 26.9 L (36.0-48.0) % MCV 76 L (80-98) fL MCH 23 L (27-31) pg MCHC 31 L (32-36) % Plt Count 261 (150-400) K/uL Neut % (Auto) 79 H (36-66) % Lymph % (Auto) 11 L (24-44) % [place] % (Auto) 10 H (2-6) % Eos % (Auto) 0 L (2-4) % Baso % (Auto) 0 (0-1) % Med Orders - Current: Current Medications Acetaminophen (Tylenol Bulk Bottle) 0 mg PO Q4H PRN PRN Reason: Pain Last Admin: 03/21/20 09:09 Dose: 650 mg Documented by: Benzocaine (Odmi-P-Cnjylqc 20% [place]) 0 gm TOP Q4H PRN PRN Reason: PAIN Emollient Ointment (Lansinoh Hpa) 1 gm TOP ASDIRECTED PRN PRN Reason: BREAST DISCOMFORT Ephedrine Sulfate (Ephedrine Sulfate) 10 mg IVPUSH ASDIRECTED PRN PRN Reason: Hypotension Last Admin: 03/20/20 14:20 Dose: 10 mg Documented by: Hydrocortisone (Proctozone-Hc 2.5% Crm) 1 gm TOP ASDIRECTED PRN PRN Reason: Itching Ceftriaxone Sodium 2 gm/ (Sodium Chloride) 50 mls @ 100 mls/hr IV Q24H TAMARA Last Admin: 03/21/20 08:57 Dose: 100 mls/hr Documented by: Ibuprofen (Motrin Bulk Bottle) 600 mg PO Q6H PRN PRN Reason: Pain Last Admin: 03/21/20 00:17 Dose: 600 mg Documented by: Sodium Chloride (Saline Flush) 10 ml FLUSH ASDIRECTED PRN PRN Reason: Keep Vein Open Witch Keri (Tucks) 1 pad TOP ASDIRECTED PRN PRN Reason: DISCOMFORT Discontinued Medications Acetaminophen (Tylenol Extra Strength) 1,000 mg PO Q6H PRN PRN Reason: fever/pain Last Admin: 03/20/20 19:56 Dose: 1,000 mg Documented by: Benzocaine (Bams-K-Cappqpl 20% [place]) 0 gm TOP Q4H ONE Stop: 03/20/20 23:46 Last Admin: 03/21/20 00:17 Dose: 1 applic Documented by: Carboprost Tromethamine (Hemabate Ds) Confirm Administered Dose 250 mcg .ROUTE .STK-MED ONE Stop: 03/20/20 23:08 Last Admin: 03/21/20 00:00 Dose: Not Given Documented by: Emollient Ointment (Lansinoh Hpa) 1 gm TOP ASDIRECTED ONE Stop: 03/20/20 23:46 Last Admin: 03/21/20 07:41 Dose: Not Given Documented by: Fentanyl (Sublimaze) 100 mcg IVPUSH Q1H PRN PRN Reason: Pain (moderate 4-6) Oxytocin/Sodium Chloride (Pitocin In Ns 20 Units/1,000 Ml) Confirm Administered Dose 20 unit in 1,000 mls @ as directed .ROUTE .STK-MED ONE Stop: 03/20/20 11:05 Last Admin: 03/20/20 12:03 Dose: Not Given Documented by: Lactated Ringer's (Ringers, Lactated) 1,000 mls @ 999 mls/hr IV .BOLUS ONE Stop: 03/20/20 12:47 Last Admin: 03/20/20 11:45 Dose: 999 mls/hr Documented by: Lactated Ringer's (Ringers, Lactated) 1,000 mls @ 125 mls/hr IV ASDIRECTED TAMARA Last Admin: 03/20/20 16:50 Dose: 125 mls/hr Documented by: Ropivacaine (Naropin 0.2%) Confirm Administered Dose 100 mls @ as directed .ROUTE .STK-MED ONE Stop: 03/20/20 13:42 Oxytocin/Sodium Chloride (Pitocin In Ns 20 Units/1,000 Ml) 20 unit in 1,000 mls @ 3 mls/hr IV TITRATE TAMARA; Protocol Last Admin: 03/21/20 00:01 Dose: 41.67 munits/min, 125 mls/hr Documented by: Ketorolac Tromethamine (Toradol) Confirm Administered Dose 60 mg .ROUTE .STK-MED ONE Stop: 03/20/20 13:56 Methylergonovine Maleate (Methergine) Confirm Administered Dose 0.2 mg .ROUTE .STK-MED ONE Stop: 03/20/20 23:08 Last Admin: 03/21/20 00:00 Dose: 0.2 mg Documented by: Methylergonovine Maleate (Methergine) 0.2 mg IM ONETIME ONE Stop: 03/20/20 23:11 Last Admin: 03/21/20 10:24 Dose: Not Given Documented by: Misoprostol (Cytotec) 100 mcg PO ONETIME ONE Stop: 03/20/20 07:31 Last Admin: 03/20/20 07:50 Dose: 100 mcg Documented by: Misoprostol (Cytotec) Confirm Administered Dose 800 mcg .ROUTE .STK-MED ONE Stop: 03/20/20 23:08 Last Admin: 03/21/20 00:00 Dose: 800 mcg Documented by: Misoprostol (Cytotec) 800 mcg RECTAL ONETIME ONE Stop: 03/20/20 23:11 Last Admin: 03/21/20 10:24 Dose: Not Given Documented by: Shanae Pool) 1 pad TOP ASDIRECTED ONE Stop: 03/20/20 23:46 Last Admin: 03/21/20 00:17 Dose: 1 pad Documented by: - Interaction Infant Disposition, : at Bedside Infant Interaction: Not Interacting Feeding: Bottle Fed Support Person: Significant Other - Recovery Exam Fundal Tone: Firm Fundal Level: 1 Fingerbreadths Below Umbilicus Fundal Placement: Midline Lochia Amount: Moderate Lochia Color: Rubra/Red Perineum Description: Intact, Minimal Bruising/Swelling, Edematous, Hemorrhoids Other Perinuem Description: 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, repair intact, no pain or hematoma Episiotomy/Laceration: Approximated Bladder Status: Indwelling Catheter in Place Urinary Elimination: Voided - Exam General: Alert, Oriented HEENT: Pupils Equal Neck: Supple Lungs: Clear to Auscultation, Normal Respiratory Effort Cardiovascular: Regular Rate, Regular Rhythm GI/Abdominal Exam: Soft, Non-Tender Extremities: No Pedal Edema, Normal Capillary Refill Skin: Warm, Dry Wound/Incisions: Healing Well Neurological: No New Focal Deficit Psy/Mental Status: Alert, Normal Affect, Normal Mood - Problem List & Annotations (1) Intrauterine SNOMED Code(s): 15602747 Code(s): Z34.90 - ENCNTR FOR SUPRVSN OF NORMAL , UNSP, UNSP TRIMESTER Status: Acute Current Visit: Yes (2) PROM (premature rupture of membranes) SNOMED Code(s): 39439521 Code(s): O42.90 - NAKUL ROM, 7TH0 BETW RUPT & ONST LABR, UNSP WEEKS OF GEST Status: Acute Current Visit: Yes Qualifiers: PROM onset of labor timing: onset of labor within 24 hours of rupture PROM gestational age: full term Qualified Code(s): O42.02 - Full-term premature rupture of membranes, onset of labor within 24 hours of rupture (3) (infant) SNOMED Code(s): 902949020 Code(s): Z78.9 - OTHER SPECIFIED HEALTH STATUS Status: Acute Current Visit: Yes (4) hemorrhage SNOMED Code(s): 98438887 Code(s): O72.1 - OTHER IMMEDIATE HEMORRHAGE Status: Acute Current Visit: Yes Qualifiers: hemorrhage type: other immediate Qualified Code(s): O72.1 - Other immediate hemorrhage (5) Vaginal delivery SNOMED Code(s): 815383443 Code(s): O80 - ENCOUNTER FOR FULL-TERM UNCOMPLICATED DELIVERY Status: Acute Current Visit: Yes - Problem List Review Problem List Initiated/Reviewed/Updated: Yes - My Orders Last 24 Hours: My Active Orders 03/20/20 11:47 ePHEDrine [ePHEDrine sulfate] 10 mg IVPUSH ASDIRECTED PRN 03/20/20 11:48 Epidural Catheter Management [OM.PC] Urgent 03/20/20 12:00 Insert Urinary Catheter [OM.PC] ASDIRECTED 03/20/20 14:05 Notify Provider [RC] PRN 03/20/20 Dinner Regular Diet [DIET] 03/20/20 23:45 Acetaminophen [Tylenol Bulk Bottle] See Dose Instructions PO Q4H PRN Hydrocortisone [Proctozone-HC 2.5% Crm] 1 gm TOP ASDIRECTED PRN Ibuprofen [Motrin Bulk Bottle] 600 mg PO Q6H PRN 03/20/20 23:46 Patient Status [ADT] Routine Vital Signs [RC] PFP Ice Therapy [OM.PC] Per Unit Routine Perineal Care [OM.PC] Per Unit Routine Sitz Bath [OM.PC] Per Unit Routine 03/20/20 23:47 Peripheral IV Discontinue [OM.PC] Routine 03/21/20 07:29 Benzocaine [Blcx-T-Capisaq 20% [place]] 0 gm TOP Q4H PRN 03/21/20 07:30 Lanolin [Lansinoh HPA] 1 gm TOP ASDIRECTED PRN 03/21/20 07:32 witch Keri [Tucks] 1 pad TOP ASDIRECTED PRN 03/21/20 08:00 cefTRIAXone [Rocephin] 2 gm Sodium Chloride 0.9% [Normal Saline] 50 ml IV Q24H - Assessment Assessment:: 03/20/20 20 year old with complication: shoulder dystocia dn post hemorrhage Shoulder dystocia reduced with supra pubic pressure and rotation of body Hemorrhage resolved with Pitocin, Methergine and Cytotec. Female infant, 03/21/20 complicated vaginal delivery: repair intact and bleeding light. HGB 8.2 from last nights post hemorrhage, will start iron elevated white count 22 thousand this morning. IV rocephin 2 gm daily, concern for chorioamnionitis due to PROM and dysfunctional labor - Plan Plan:: 03/20/20 PROM at 38 3/7 weeks, mild contractions, clear fluid Plan: Oral Misoprostol this morning and pitocin at noon if no strong labor plan for vaginal delivery maybe up and about 03/20/20 routine cares CBC in am support and mother will need a lot of teaching and help 48 hour stay 03/21/20 continue same cares IV Rocephin in AM and repeat CBC Start iron supplement today and continue for 6 weeks discharge possibly tomorrow evening if improving and feeling well.
[2020-03-21] MEDS: Ferrous Sulfate 325 MG Tab PO SCH (17:09)
[2020-03-21] MEDS ORDERED: Docusate Sodium 100 MG Cap PO PRN (17:54)
[2020-03-22 07:29] VITALS: BP 139/73; PULSE 90
--- NOTE | 2020-03-22 08:25 | PCM.PNPP ---
- General Info Date of Service: 03/22/20 - Review of Systems General: Reports: No Symptoms HEENT: Reports: No Symptoms Pulmonary: Reports: No Symptoms Cardiovascular: Reports: No Symptoms Gastrointestinal: Reports: No Symptoms Genitourinary: Reports: No Symptoms Musculoskeletal: Reports: No Symptoms Skin: Reports: No Symptoms Neurological: Reports: No Symptoms Psychiatric: Reports: No Symptoms - General Info Date of Service: 03/22/20 - Patient Data Vital Signs - Most Recent: Last Vital Signs Temp 35.9 C L 03/22/20 07:00 Pulse 90 03/22/20 07:00 Resp 18 03/22/20 07:00 BP 139/73 03/22/20 07:00 Pulse Ox 100 03/22/20 07:00 Weight - Most Recent: 113.398 kg I&O - Last 24 Hours: Intake & Output 03/21/20 03/22/20 03/22/20 22:59 06:59 14:59 Intake Total 720 Balance 720 Lab Results - Last 24 Hours: Laboratory Results - last 24 hr 03/22/20 Range/Units 06:00 WBC 15.7 H (4.5-11.0) K/uL RBC 3.55 (3.30-5.50) M/uL Hgb 8.3 L (12.0-15.0) g/dL Hct 27.6 L (36.0-48.0) % MCV 78 L (80-98) fL MCH 23 L (27-31) pg MCHC 30 L (32-36) % Plt Count 265 (150-400) K/uL Med Orders - Current: Current Medications Acetaminophen (Tylenol Bulk Bottle) 0 mg PO Q4H PRN PRN Reason: Pain Last Admin: 03/21/20 09:09 Dose: 650 mg Documented by: Benzocaine (Bnzp-P-Bqcudrr 20% [place]) 0 gm TOP Q4H PRN PRN Reason: PAIN Docusate Sodium (Colace) 100 mg PO BID PRN PRN Reason: Constipation Last Admin: 03/21/20 18:14 Dose: 100 mg Documented by: Emollient Ointment (Lansinoh Hpa) 1 gm TOP ASDIRECTED PRN PRN Reason: BREAST DISCOMFORT Ephedrine Sulfate (Ephedrine Sulfate) 10 mg IVPUSH ASDIRECTED PRN PRN Reason: Hypotension Last Admin: 03/20/20 14:20 Dose: 10 mg Documented by: Ferrous Sulfate (Ferrous Sulfate) 325 mg PO BIDMEALS [facility] Last Admin: 03/21/20 17:09 Dose: 325 mg Documented by: Hydrocortisone (Proctozone-Hc 2.5% Crm) 1 gm TOP ASDIRECTED PRN PRN Reason: Itching Ceftriaxone Sodium 2 gm/ (Sodium Chloride) 50 mls @ 100 mls/hr IV Q24H [facility] Last Admin: 03/21/20 08:57 Dose: 100 mls/hr Documented by: Ibuprofen (Motrin Bulk Bottle) 600 mg PO Q6H PRN PRN Reason: Pain Last Admin: 03/21/20 00:17 Dose: 600 mg Documented by: Sodium Chloride (Saline Flush) 10 ml FLUSH ASDIRECTED PRN PRN Reason: Keep Vein Open Witch Keri (Tucks) 1 pad TOP ASDIRECTED PRN PRN Reason: DISCOMFORT Discontinued Medications Acetaminophen (Tylenol Extra Strength) 1,000 mg PO Q6H PRN PRN Reason: fever/pain Last Admin: 03/20/20 19:56 Dose: 1,000 mg Documented by: Benzocaine (Zwpo-B-Qgroazv 20% [place]) 0 gm TOP Q4H ONE Stop: 03/20/20 23:46 Last Admin: 03/21/20 00:17 Dose: 1 applic Documented by: Carboprost Tromethamine (Hemabate Ds) Confirm Administered Dose 250 mcg .ROUTE .STK-MED ONE Stop: 03/20/20 23:08 Last Admin: 03/21/20 00:00 Dose: Not Given Documented by: Emollient Ointment (Lansinoh Hpa) 1 gm TOP ASDIRECTED ONE Stop: 03/20/20 23:46 Last Admin: 03/21/20 07:41 Dose: Not Given Documented by: Fentanyl (Sublimaze) 100 mcg IVPUSH Q1H PRN PRN Reason: Pain (moderate 4-6) Oxytocin/Sodium Chloride (Pitocin In Ns 20 Units/1,000 Ml) Confirm Administered Dose 20 unit in 1,000 mls @ as directed .ROUTE .STK-MED ONE Stop: 03/20/20 11:05 Last Admin: 03/20/20 12:03 Dose: Not Given Documented by: Lactated Ringer's (Ringers, Lactated) 1,000 mls @ 999 mls/hr IV .BOLUS ONE Stop: 03/20/20 12:47 Last Admin: 03/20/20 11:45 Dose: 999 mls/hr Documented by: Lactated Ringer's (Ringers, Lactated) 1,000 mls @ 125 mls/hr IV ASDIRECTED TAMARA Last Admin: 03/20/20 16:50 Dose: 125 mls/hr Documented by: Ropivacaine (Naropin 0.2%) Confirm Administered Dose 100 mls @ as directed .ROUTE .STK-MED ONE Stop: 03/20/20 13:42 Oxytocin/Sodium Chloride (Pitocin In Ns 20 Units/1,000 Ml) 20 unit in 1,000 mls @ 3 mls/hr IV TITRATE TAMARA; Protocol Last Admin: 03/21/20 00:01 Dose: 41.67 munits/min, 125 mls/hr Documented by: Ketorolac Tromethamine (Toradol) Confirm Administered Dose 60 mg .ROUTE .STK-MED ONE Stop: 03/20/20 13:56 Methylergonovine Maleate (Methergine) Confirm Administered Dose 0.2 mg .ROUTE .STK-MED ONE Stop: 03/20/20 23:08 Last Admin: 03/21/20 00:00 Dose: 0.2 mg Documented by: Methylergonovine Maleate (Methergine) 0.2 mg IM ONETIME ONE Stop: 03/20/20 23:11 Last Admin: 03/21/20 10:24 Dose: Not Given Documented by: Misoprostol (Cytotec) 100 mcg PO ONETIME ONE Stop: 03/20/20 07:31 Last Admin: 03/20/20 07:50 Dose: 100 mcg Documented by: Misoprostol (Cytotec) Confirm Administered Dose 800 mcg .ROUTE .STK-MED ONE Stop: 03/20/20 23:08 Last Admin: 03/21/20 00:00 Dose: 800 mcg Documented by: Misoprostol (Cytotec) 800 mcg RECTAL ONETIME ONE Stop: 03/20/20 23:11 Last Admin: 03/21/20 10:24 Dose: Not Given Documented by: Shanae Dav[facility]) 1 pad TOP ASDIRECTED ONE Stop: 03/20/20 23:46 Last Admin: 03/21/20 00:17 Dose: 1 pad Documented by: - Infant Interaction Disposition, : at Bedside Interaction: Not Interacting Feeding: Bottle Fed Support Person: Significant Other - Recovery Exam Fundal Tone: Firm Fundal Level: 2 Fingerbreadths Below Umbilicus Fundal Placement: Midline Lochia Amount: Small Lochia Color: Rubra/Red Perineum Description: Intact, Minimal Bruising/Swelling, Redness Other Perinuem Description: 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 Moist/[place] Neck: Supple Lungs: Clear to Auscultation, Normal Respiratory Effort Cardiovascular: Regular Rate, Regular Rhythm GI/Abdominal Exam: Normal Bowel Sounds, Soft, Non-Tender, No Organomegaly, No Distention, No Abnormal Bruit, No Mass, Pelvis Stable Extremities: Normal Inspection, Normal Range of Motion, Non-Tender, No Pedal Edema, Normal Capillary Refill Skin: Warm, Dry, Intact Wound/Incisions: Healing Well Neurological: No New Focal Deficit Psy/Mental Status: Alert, Normal Affect, Normal Mood - Problem List & Annotations (1) (infant) SNOMED Code(s): 929971216 Code(s): Z78.9 - OTHER SPECIFIED HEALTH STATUS Status: Acute Current Visit: Yes (2) PROM (premature rupture of membranes) SNOMED Code(s): 65423826 Code(s): O42.90 - NAKUL ROM, 7TH0 BETW RUPT & ONST LABR, UNSP WEEKS OF GEST Status: Acute Current Visit: Yes Qualifiers: PROM onset of labor timing: onset of labor within 24 hours of rupture PROM gestational age: full term Qualified Code(s): O42.02 - Full-term premature rupture of membranes, onset of labor within 24 hours of rupture (3) hemorrhage SNOMED Code(s): 24509710 Code(s): O72.1 - OTHER IMMEDIATE HEMORRHAGE Status: Acute Current Visit: Yes Qualifiers: hemorrhage type: other immediate Qualified Code(s): O72.1 - Other immediate hemorrhage (4) Vaginal delivery SNOMED Code(s): 306420059 Code(s): O80 - ENCOUNTER FOR FULL-TERM UNCOMPLICATED DELIVERY Status: Acute Current Visit: Yes - Problem List Review Problem List Initiated/Reviewed/Updated: Yes - Assessment Assessment:: 03/20/20 20 year old with complication: shoulder dystocia dn post hemorrhage Shoulder dystocia reduced with supra pubic pressure and rotation of body Hemorrhage resolved with Pitocin, Methergine and Cytotec. Female , 03/21/20 complicated vaginal delivery: repair intact and bleeding light. HGB 8.2 from last nights post hemorrhage, will start iron elevated white count 22 thousand this morning. IV rocephin 2 gm daily, concern for chorioamnionitis due to PROM and dysfunctional labor 03/22/2020 day two PPH-hgb-8.3 today and on Iron PO BID daily WBC-down to 15.3 today will do one more dose antibiotics before home Bottlefed Fundus firm and bleeding decreasing Patient desires discharge home today - Plan Plan:: 03/20/20 PROM at 38 3/7 weeks, mild contractions, clear fluid Plan: Oral Misoprostol this morning and pitocin at noon if no strong labor plan for vaginal delivery maybe up and about 03/20/20 routine cares CBC in am support and mother will need a lot of teaching and help 48 hour stay 03/21/20 continue same cares IV Rocephin in AM and repeat CBC Start iron supplement today and continue for 6 weeks discharge possibly tomorrow evening if improving and feeling well. 03/22/2020 Continue routine cares Continue iron per order Discharge home today per patient request Patient to see provider for visit in 6 weeks
[2020-03-22] MEDS: Ferrous Sulfate 325 MG Tab PO SCH (08:27)
[2020-03-22] MEDS: cefTRIAXone 2 GM in Sodium Chloride 0.9% 50 ML IV SCH (08:27)
== END 2020-03-22 10:45 | disposition home or self-care (01) | DRG 805 ==
LOC: JP.OBCHECK 04:13 → JP.OB 05:45 → OBSVTOIN 22:56 → JP.MS 03-21 02:00
PROVIDERS: ADMIT Nurse Practitioner Family; ATTEND Nurse Practitioner Family
PROC: 10E0XZZ Delivery of Products of Conception, External Approach (ICD-10-PCS; principal; 2020-03-20)
PROC: 3E0P7VZ Introduction of Hormone into Female Reproductive, Via Natural or Artificial Opening (ICD-10-PCS; 2020-03-20)
PROC: 0HQ9XZZ Repair Perineum Skin, External Approach (ICD-10-PCS; 2020-03-20)
PROC: 3E0R3BZ Introduction of Anesthetic Agent into Spinal Canal, Percutaneous Approach (ICD-10-PCS; 2020-03-20)
PROC: 00HU33Z Insertion of Infusion Device into Spinal Canal, Percutaneous Approach (ICD-10-PCS; 2020-03-20)
DX: O42.92 Full-term premature rupture of membranes, unspecified as to length of time between rupture and onset of labor (principal); O41.1230 Chorioamnionitis, third trimester, not applicable or unspecified; Z37.0 Single live birth; O72.1 Other immediate postpartum hemorrhage; Z3A.38 38 weeks gestation of pregnancy; O70.0 First degree perineal laceration during delivery; O69.81X0 Labor and delivery complicated by cord around neck, without compression, not applicable or unspecified; O66.0 Obstructed labor due to shoulder dystocia; Z20.822 Contact with and (suspected) exposure to COVID-19
CPT/HCPCS: 36415; 51702; 59409; 80305-QW; 81001; 84112; 85025; 85027; 99211; A9270-GY; J0696; J1885; J2210; J2590; J2795; J7120; U0002

== ENCOUNTER 2020-11-07 10:07 | Emergency (ER) | payer MEDICAID ==
[2020-11-07] MEDS ORDERED: Ondansetron 4 MG Tab.DIS PO ONE (10:23)
[2020-11-07 10:26] VITALS: BP 121/83; PULSE 117
--- NOTE | 2020-11-07 10:27 | EDM.PDOC ---
ED HPI GENERAL MEDICAL PROBLEM - General Chief Complaint: Respiratory Problem Stated Complaint: COVID POSITIVE, SOB Time Seen by Provider: 11/07/20 10:21 Source of Information: Reports: Patient History Limitations: Reports: No Limitations - History of Present Illness INITIAL COMMENTS - FREE TEXT/NARRATIVE: Jemal is a 20-year-old female presenting to the ED for evaluation of increasing shortness of breath in the face of being COVID-19 positive. Patient initially had symptoms on Thursday and was seen in the clinic on Thursday where she underwent testing for COVID-19. She was found to be positive. She has past medical history significant for obesity and asthma. She has been using her inhaler but despite this is becoming increasingly short of breath. She is also had difficulty keeping even fluids down with reportedly 8 episodes of emesis today. She reports that her fianc, child, and herself are all Covid positive currently. None of them have been vaccinated for COVID-19. She does not smoke. 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: Musculoskeletal History: Reports: None Neurological History: Reports: Concussion Psychiatric History: Reports: ADHD, Anxiety, Depression, Panic Attack, Other (See Below) Other Psychiatric History: cutting Endocrine/Metabolic History: Reports: None Hematologic History: Reports: None Immunologic History: Reports: None Oncologic (Cancer) History: Reports: None Dermatologic History: Reports: Other (See Below) Other Dermatologic History: acne - Infectious Disease History Infectious Disease History: Reports: None - Past Surgical History Head Surgeries/Procedures: Reports: None HEENT Surgical History: Reports: None Cardiovascular Surgical History: Reports: None Respiratory Surgical History: Reports: None GI Surgical History: Reports: EGD Female Surgical History: Reports: None Endocrine Surgical History: Reports: None Neurological Surgical History: Reports: None Musculoskeletal Surgical History: Reports: Other (See Below) Other Musculoskeletal Surgeries/Procedures:: right foot-taylors bunion Oncologic Surgical History: Reports: None Dermatological Surgical History: Reports: None Social & Family History - Caffeine Use Caffeine Use: Reports: Coffee, Soda - Living Situation & Occupation Living situation: Reports: with Significant Other (lives in [facility] with boyfriend) ED ROS GENERAL - Review of Systems Review Of Systems: See Below Constitutional: Reports: Chills, Malaise, Decreased Appetite HEENT: Reports: No Symptoms Respiratory: Reports: Shortness of Breath, Wheezing, Cough Cardiovascular: Reports: No Symptoms Endocrine: Reports: Fatigue GI/Abdominal: Reports: Nausea, Vomiting : Reports: No Symptoms Musculoskeletal: Reports: Muscle Pain Skin: Reports: No Symptoms Neurological: Reports: No Symptoms Psychiatric: Reports: Anxiety Hematologic/Lymphatic: Reports: No Symptoms Immunologic: Reports: Other (History of asthma) ED EXAM, GENERAL - Physical Exam Exam: See Below Exam Limited By: No Limitations General Appearance: Alert, No Apparent Distress, Anxious, Obese Eye Exam: Bilateral Eye: EOMI, PERRL Throat/Mouth: Normal Oropharynx, Normal Voice, No Airway Compromise Head: Atraumatic, Normocephalic Neck: Normal Inspection, Supple, Non-Tender, Full Range of Motion. No: Lymphadenopathy (R), Lymphadenopathy (L) Respiratory/Chest: No Respiratory Distress, Lungs Clear, Decreased Breath Sounds (Diminished breath sounds in the bases). No: Rales, Rhonchi, Wheezing Cardiovascular: Normal Peripheral Pulses, Regular Rate, Rhythm, No Murmur Peripheral Pulses: 2+: Radial (L), Radial (R) GI/Abdominal: Normal Bowel Sounds, Soft, Non-Tender Back Exam: Normal Inspection Extremities: Normal Inspection Neurological: Alert, Oriented, Normal Cognition, No Motor/Sensory Deficits Psychiatric: Anxious Skin Exam: Warm, Dry, Intact, Normal Color Course - Vital Signs Last Recorded V/S: Last Vital Signs Temp 36.4 C 11/07/20 10:19 Pulse 117 H 11/07/20 10:19 Resp 20 11/07/20 10:19 BP 121/83 11/07/20 10:19 Pulse Ox 98 11/07/20 10:19 - Orders/Labs/Meds Orders: Active Orders 24 hr Category Date Time Status Chest 1V Frontal [CR] Stat Exams 11/07/20 10:21 Taken Labs: Laboratory Tests 11/07/20 11/07/20 11/07/20 Range/Units 10:21 10:54 10:54 WBC 5.4 (4.5-11.0) K/uL RBC 5.82 H (3.30-5.50) M/uL Hgb 14.0 D (12.0-15.0) g/dL Hct 42.8 (36.0-48.0) % MCV 74 L (80-98) fL MCH 24 L (27-31) pg MCHC 33 (32-36) % Plt Count 230 (150-400) K/uL Neut % (Auto) 60.2 (36-66) % Lymph % (Auto) 27.9 (24-44) % [place] % (Auto) 11.9 H (2-6) % Eos % (Auto) 0.0 L (2-4) % Baso % (Auto) 0.0 (0-1) % D-Dimer, Quantitative 669.38 H (0.0-500.0) ng/mL Sodium 136 L (140-148) mmol/L Potassium 4.0 (3.6-5.2) mmol/L Chloride 101 (100-108) mmol/L Carbon Dioxide 24 (21-32) mmol/L Anion Gap 15.0 H (5.0-14.0) mmol/L BUN 11 (7-18) mg/dL Creatinine 0.9 (0.6-1.0) mg/dL Est Cr Clr Drug Dosing 88.23 mL/min Estimated GFR (MDRD) > 60 (>60) Glucose 97 (74-106) mg/dL Lactic Acid (0.4-2.0) mmol/L Calcium 8.9 (8.5-10.1) mg/dL Ferritin 36 (8-388) ng/ml Total Bilirubin 0.1 L (0.2-1.0) mg/dL AST 25 (15-37) U/L ALT 45 D (12-78) U/L Alkaline Phosphatase 118 H (46-116) U/L Lactate Dehydrogenase 181 (82-234) U/L C-Reactive Protein 0.51 H (0.0-0.3) mg/dL Total Protein 8.1 (6.4-8.2) g/dL Albumin 3.8 (3.4-5.0) g/dL Globulin 4.3 H (2.3-3.5) g/dL Albumin/Globulin Ratio 0.9 L (1.2-2.2) Procalcitonin ng/mL 11/07/20 11/07/20 Range/Units 10:54 10:54 WBC (4.5-11.0) K/uL RBC (3.30-5.50) M/uL Hgb (12.0-15.0) g/dL Hct (36.0-48.0) % MCV (80-98) fL MCH (27-31) pg MCHC (32-36) % Plt Count (150-400) K/uL Neut % (Auto) (36-66) % Lymph % (Auto) (24-44) % [place] % (Auto) (2-6) % Eos % (Auto) (2-4) % Baso % (Auto) (0-1) % D-Dimer, Quantitative (0.0-500.0) ng/mL Sodium (140-148) mmol/L Potassium (3.6-5.2) mmol/L Chloride (100-108) mmol/L Carbon Dioxide (21-32) mmol/L Anion Gap (5.0-14.0) mmol/L BUN (7-18) mg/dL Creatinine (0.6-1.0) mg/dL Est Cr Clr Drug Dosing mL/min Estimated GFR (MDRD) (>60) Glucose (74-106) mg/dL Lactic Acid 1.0 (0.4-2.0) mmol/L Calcium (8.5-10.1) mg/dL Ferritin (8-388) ng/ml Total Bilirubin (0.2-1.0) mg/dL AST (15-37) U/L ALT (12-78) U/L Alkaline Phosphatase (46-116) U/L Lactate Dehydrogenase (82-234) U/L C-Reactive Protein (0.0-0.3) mg/dL Total Protein (6.4-8.2) g/dL Albumin (3.4-5.0) g/dL Globulin (2.3-3.5) g/dL Albumin/Globulin Ratio (1.2-2.2) Procalcitonin < 0.05 ng/mL Meds: Medications Discontinued Medications Generic Name Dose Route Start Last Admin Trade Name Cam PRN Reason Stop Dose Admin Ondansetron HCl 4 mg 11/07/20 10:23 11/07/20 10:39 Ondansetron 4 Mg Tab.Dis PO 11/07/20 10:24 4 mg ONETIME ONE Administration - Radiology Interpretation Free Text/Narrative:: I reviewed the one-view portable chest x-ray on [facility] is essentially unremarkable for any significant infiltrates. There is normal cardiopulmonary anatomy. - Re-Assessments/Exams Free Text/Narrative Re-Assessment/Exam: 11/07/20 11:39 I reviewed the patient's labs showing a normal CBC with a leukocyte count of 5.4, hemoglobin of 14.0, hematocrit of 42.8, and a platelet count of 230,000. The comprehensive metabolic panel is also unremarkable. Venous lactate is 1.0. Procalcitonin is less than 0.5, D-dimer is slightly elevated at 669 and CRP is 0.51. This is consistent with her positive COVID-19. I do not believe that pursuing the elevated D-dimer is warranted as the elevation is likely due to the Covid infection. At this time, the patient is saturating at 97% on room air. She is predominantly complaining of GI symptoms which have improved after receiving the Zofran. We will continue treatment as an outpatient with Zofran 4 mg every 8 hours as needed for nausea and vomiting. Patient is encouraged to drink electrolyte rich fluids like Gatorade or propel. At this time she is suitable for discharge in satisfactory condition and instructed to continue to isolate at home. Indications to return to the ED were discussed prior to discharge. Departure - Departure Time of Disposition: 11:40 Disposition: Home, Self-Care 01 Clinical Impression: COVID-19 Nausea and vomiting Qualifiers: Vomiting type: unspecified Vomiting Intractability: non-intractable Qualified Code(s): R11.2 - Nausea with vomiting, unspecified - Discharge Information Instructions: COVID-19 Frequently Asked Questions, COVID-19: What to Do if You Are Sick - [facility] [place] (02/23/2020), Nausea and Vomiting, Adult, [id number] Forms: ED Department Discharge Care Plan Goals: Currently there is no significant evidence of involvement of the COVID-19 on your lungs. We will continue to treat your nausea and vomiting with Zofran 1 tablet every 8 hours as needed for control of your symptoms. Continue to drink electrolyte rich fluids like propel and Gatorade. Should you develop significant shortness of breath, return to the ED for reevaluation. Sepsis Event Note (ED) - Focused Exam Vital Signs: Vital Signs Temp Pulse Resp BP Pulse Ox 11/07/20 10:19 36.4 C 117 H 20 121/83 98 - Problem List & Annotations (1) COVID-19 SNOMED Code(s): 683290118 Code(s): U07.1 - COVID-19 Status: Acute Priority: High Current Visit: Yes (2) Nausea and vomiting SNOMED Code(s): 43105155 Code(s): R11.2 - NAUSEA WITH VOMITING, UNSPECIFIED Status: Acute Priority: High Current Visit: Yes Qualifiers: Vomiting type: unspecified Vomiting Intractability: non-intractable Qualified Code(s): R11.2 - Nausea with vomiting, unspecified - Problem List Review Problem List Initiated/Reviewed/Updated: Yes - My Orders Last 24 Hours: My Active Orders 11/07/20 10:21 Chest 1V Frontal [CR] Stat - Assessment/Plan Last 24 Hours: My Active Orders 11/07/20 10:21 Chest 1V Frontal [CR] Stat
--- NOTE | 2020-11-07 11:55 | CR ---
CHEST: AP CLINICAL HISTORY:SOB, asthma covid COMPARISON:None FINDINGS: The heart size, pulmonary vascularity and hilar structures are normal. No infiltrate effusion or pneumothorax is seen. IMPRESSION: No acute cardiopulmonary process.
== END 2020-11-07 12:00 | disposition home or self-care (01) ==
LOC: JP.ED 10:07
DX: U07.1 COVID-19 (principal); R11.2 Nausea with vomiting, unspecified
CPT/HCPCS: 36415; 71045; 80053; 82728; 83605; 83615; 84145; 85025; 85379; 86140; 99285; A9270

== ENCOUNTER 2020-11-10 06:57 | Emergency (ER) | payer MEDICAID ==
[2020-11-10 07:19] VITALS: BP 139/94; PULSE 123
--- NOTE | 2020-11-10 07:24 | EDM.PDOC ---
ED HPI GENERAL MEDICAL PROBLEM - General Chief Complaint: Skin Complaint Stated Complaint: COVID POSITIVE Time Seen by Provider: 11/10/20 07:00 Source of Information: Reports: Patient, Family History Limitations: Reports: No Limitations - History of Present Illness INITIAL COMMENTS - FREE TEXT/NARRATIVE: 20-year-old female was diagnosed with COVID-19 4 days ago, has been tired with some generalized muscle aches and intermittent fevers. This morning she woke up with a generalized blanching macular rash over her face and trunk and a few scattered spots on her extremities. She is not on an antibiotic, it is not pruritic but it does "burn "on her face. No fevers or chills this morning, no shortness of breath. Onset: Unknown/Unsure (Woke up with rash this morning, it was not present yesterday) Location: Reports: Generalized Associated Symptoms: Reports: Cough, Fever/Chills, Headaches, Malaise, Weakness. 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: Musculoskeletal History: Reports: None Neurological History: Reports: Concussion Psychiatric History: Reports: ADHD, Anxiety, Depression, Panic Attack, Other (See Below) Other Psychiatric History: cutting Endocrine/Metabolic History: Reports: Obesity/BMI 30+ Hematologic History: Reports: None Immunologic History: Reports: None Oncologic (Cancer) History: Reports: None Dermatologic History: Reports: Other (See Below) Other Dermatologic History: acne - Infectious Disease History Infectious Disease History: Reports: Novel Coronavirus - Past Surgical History Head Surgeries/Procedures: Reports: None HEENT Surgical History: Reports: None Cardiovascular Surgical History: Reports: None Respiratory Surgical History: Reports: None GI Surgical History: Reports: EGD Female Surgical History: Reports: None Endocrine Surgical History: Reports: None Neurological Surgical History: Reports: None Musculoskeletal Surgical History: Reports: Other (See Below) Other Musculoskeletal Surgeries/Procedures:: right foot-taylors bunion Oncologic Surgical History: Reports: None Dermatological Surgical History: Reports: None Social & Family History - Tobacco Use Tobacco Use Status *Q: Never Tobacco User Second Hand Smoke Exposure: No - Caffeine Use Caffeine Use: Reports: Soda - Recreational Drug Use Recreational Drug Use: No - Living Situation & Occupation Living situation: Reports: with Significant Other (lives in [facility] with boyfriend) ED ROS GENERAL - Review of Systems Review Of Systems: See Below Constitutional: Reports: Fever, Chills, Malaise HEENT: Denies: Rhinitis, Throat Pain Respiratory: Reports: Cough. Denies: Shortness of Breath Cardiovascular: Denies: Chest Pain, Edema GI/Abdominal: Denies: Abdominal Pain, Nausea, Vomiting Musculoskeletal: Reports: Muscle Pain (Some generalized muscle aches) Skin: Reports: Rash Neurological: Reports: Dizziness, Weakness Psychiatric: Reports: No Symptoms ED EXAM, SKIN/RASH Exam: See Below Exam Limited By: No Limitations General Appearance: Alert, No Apparent Distress (Looks fatigued but not distress ed) Eye Exam: Bilateral Eye: Normal Inspection Throat/Mouth: Normal Inspection Head: Atraumatic Neck: Supple, Non-Tender Respiratory/Chest: No Respiratory Distress, Lungs Clear, Other (Despite occasional cough her lungs are completely clear) Cardiovascular: Regular Rate, Rhythm, Tachycardia GI/Abdominal: Soft, Non-Tender Neurological: Alert, Oriented Psychiatric: Flat Affect Skin: Warm, Dry, Other (Patient has a generalized macular rash, erythematous which is blanching over the entire face and neck, scattered areas over the trunk and extremities) Course - Vital Signs Last Recorded V/S: Last Vital Signs Temp 98.1 F 11/10/20 07:02 Pulse 123 H 11/10/20 07:02 Resp 17 11/10/20 07:02 BP 139/94 H 11/10/20 07:02 Pulse Ox 96 11/10/20 07:02 - Re-Assessments/Exams Free Text/Narrative Re-Assessment/Exam: 11/10/20 09:23 This is likely a viral exanthem. It is possibly related to her Covid infection. It does not appear to be an allergic rash but that is a possibility. She will be placed on a Medrol Dosepak over the course of the next several days, that may help her with some of her Covid symptoms as well. She can return anytime if worsening despite treatment. Departure - Departure Time of Disposition: 07:34 Disposition: Home, Self-Care 01 Clinical Impression: Viral exanthem - Discharge Information Instructions: Rash, Adult Referrals: PCP,None [Primary Care Provider] - Forms: ED Department Discharge Care Plan Goals: Take Medrol Dosepak as prescribed for at least the first 3 or 4 days, return anytime if worsening such as difficulty breathing or persistent nausea and vomiting. Topical hydrocortisone or Benadryl may be helpful as well. Sepsis Event Note (ED) - Focused Exam Vital Signs: Vital Signs Temp Pulse Resp BP Pulse Ox 11/10/20 07:02 98.1 F 123 H 17 139/94 H 96 11/10/20 06:59 98.1 F 123 H 17 139/94 H 96
== END 2020-11-10 07:34 | disposition home or self-care (01) ==
LOC: JP.ED 06:57
DX: B09 Unspecified viral infection characterized by skin and mucous membrane lesions (principal); J45.909 Unspecified asthma, uncomplicated; E66.9 Obesity, unspecified; Z68.36 Body mass index [BMI] 36.0-36.9, adult
CPT/HCPCS: 99283

== ENCOUNTER 2021-11-29 10:02 | Emergency (ER) | payer MEDICAID | END 2021-11-29 11:04 | disposition home or self-care (01) | LOC: JP.ED 10:02 | DX: O20.0 Threatened abortion (principal); Z3A.11 11 weeks gestation of pregnancy | CPT/HCPCS: 99283 ==

== ENCOUNTER 2024-11-14 09:59 | Emergency (ER) | payer MEDICAID ==
[2024-11-14 10:35] LABS: GLUCOSE,URINE NEGATIVE (NEGATIVE); OCCULT BLOOD,URINE NEGATIVE (NEGATIVE)
[2024-11-14 10:41] LABS: APPEARANCE,URINE SLIGHTLY CLOUDY (CLEAR); SQUAMOUS EPITHELIAL CELLS,UR MODERATE /HPF
[2024-11-14] MEDS: Lactated Ringers 1,000 ML IV ONE (10:50)
[2024-11-14] MEDS: Ketorolac 30 MG/ML SDV IVPUSH ONE (10:50)
[2024-11-14 11:06] VITALS: BP 106/69; PULSE 70
== END 2024-11-14 11:58 | disposition home or self-care (01) ==
LOC: JP.ED 09:59
DX: K52.9 Noninfective gastroenteritis and colitis, unspecified (principal); K92.0 Hematemesis; E66.9 Obesity, unspecified; Z91.09 Other allergy status, other than to drugs and biological substances; Z86.16 Personal history of COVID-19; Z68.36 Body mass index [BMI] 36.0-36.9, adult
CPT/HCPCS: 81001; 81025; 82271; 96361; 96374; 96375; 99284; J1790; J1885; J7120